=== PATIENT | female | born 1950 | race Caucasian/White ===

== ENCOUNTER → 2019-11-26 06:57 | Outpatient (CLI) | payer MEDICARE, SELFPAY ==
--- NOTE | 2019-11-26 | CA_ITS ---
APPROVED REPORT Exam: Pharmacologic Technologist: kelin michael, Ht: 5 ft 7 in Wt: 270 lbs BSA: 2.30 m2 HR: 71 bpm BP: 149/84 mmHg Indications: SOB Medical History Medications: Metformin,,,,, Lipitor,,,,, Cymbalta,,,,, JanuIVA,,,,, Allergies: Latex, Lisinopril, Sulfa, Trimethoprim Cardiac Risk Factors: HTN, Hyperlipidemia, Diabetes (non-insulin) Stress Test Details Test: LEXISCAN HR Resting HR: 69 bpm Max Heart Rate (APMHR): 153 bpm Max HR Achieved: 96 bpm Target HR (85% APMHR): 130 bpm % of APMHR: 62 Recovery HR: 86 bpm BP Resting BP: 149/84 mmHg Max BP: 174/73 mmHg Recovery BP: 171.0/72.0 mmHg ECG Resting ECG: Sinus Rhythm Clinical Exercise duration: 04:08 min Highest Stage Achieved: Stress ECG Conclusion Jessica scan portion completed. C/O SOB. No chest pain. Symptoms resolved during recovery. No ectopy. Less than 1.5mm ST Depression. Images to follow. Test Summary REST 01:31 . . 69 . 149/ 84 . . Stage 1 . . . . . . . Myoview Injected Stage 1 01:00 . . 81 . . . . Stage 2 01:00 . . 93 . 137/ 79 . . Stage 3 01:00 . . 84 . 157/ 79 . . Stage 4 01:00 . . 83 . 174/ 73 . . Stage 4 01:08 . . 84 . 171/ 72 . Stop exercise at 04:08 RECOVERY 01:00 . . 88 . 172/ 77 . . RECOVERY 02:00 . . 83 . 173/ 84 . . RECOVERY 03:00 . . 79 . 173/ 84 . . RECOVERY 04:00 . . 81 . 174/ 86 . . RECOVERY 04:02 . . 80 . 174/ 86 . . Electronically signed by : Pancho Hand, 11/26/2019 19:21:35
--- NOTE | 2019-11-26 07:15 | NM_ITS ---
APPROVED REPORT Exam: Nuclear Stress Test Indication: SOB, Fatigue, HTN, DM, Family history Patient Location: Outpatient Stress Tech: Kimberly Hassan CT Tech:Elizabeth Urrutia, ARRT, RT (R)(N) Ht: 5 ft 7 in Wt: 270 lbs Bra Size: 42C HR: 71 bpm BP: 149/84 mmHg BSA: 2.30 m2 BMI: 42.2 History: SOB, Fatigue, HTN, DM, Family history Procedure: Patient received a 0.4 mg of intravenous Lexiscan, resting heart rate 71 bpm, resting blood pressure 149/84 mmHg, with Lexiscan maximum heart rate achived was 96 bpm which is This is an 85 % of the maximum predicted heart rate and blood pressure was 174/73 mmHg. With Lexiscan, patient denied any complaint of chest pain. Electrocardiogram Resting electrocardiogram showed sinus rhythm, with Lexiscan there is less than 1.[address] segment depression noted from the baseline EKG. The EKG portion of the Lexiscan Myoview is nondiagnostic. Cardiac Stress and Resting SPECT Images: Cardiac Stress and Resting SPECT images were obtained using technetium 99m Myoview 32.2 mCi stress and 10.60 mCi at rest. Gated SPECT with analysis of segmental wall motion and calculation of the ejection fraction also done. Cardiac stress and resting SPECT images show mild fixed defect in the anterior wall with normal contribute gated SPECT and normal perfusion of the apex is likely secondary to soft tissue attenuation, no reversible ischemia seen. Computer derived ejection fraction is 63% with no regional wall motion abnormality, right ventricle is normal size and contractility. Conclusion: 1. The EKG portion of the Lexiscan Myoview is nondiagnostic. 2. No scintigraphic evidence of reversible ischemia seen, computer ejection fraction is 63% with no regional wall motion abnormality, right ventricle is normal size and contractility 3. Likely normal Lexiscan Myoview study. Electronically signed by : Pancho Hand, 11/26/2019 19:24:12
--- NOTE | 2019-11-26 07:23 | HMH.ITSHM ---
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 []JANUVIA METFORMIN CYMBALTA ATORVASTATIN
--- NOTE | 2019-11-26 08:08 | CA_ITS ---
APPROVED REPORT EXAM: Comprehensive 2D, Doppler, and color-flow Echocardiogram Longitudinal Float Operator: Susu Ledesma RDCS Ht: 5 ft 7 in Wt: 270lbs BSA: 2.30 BP: 110/80 mmHg Indications: soa 2D Dimensions LVOT 1.58 cm (M/F) 1.5-2.5 M-Mode Dimensions RVDd 2.11 cm (0.9-2.6) LVDd 5.52 cm (3.5-5.7) LVDs 3.95 cm (3.5-5.7) IVSd 1.66 cm (0.6-1.1) PWd 0.67 cm (0.6-1.1) EF (Teich) 54.30% FS 28.40% EDV (Teich) 148.70 mL ESV (Teich) 67.90 mL LV Diastology E/A Ratio 0.88 Mitral Valve MV A Velocity 90.00 (40-130 cm/s) Left Ventricle Left atrium is mildly enlarged, left ventricular is normal size, mild concentric left ventricular hypertrophy, visually estimated ejection fraction 55% with no regional wall motion abnormality, grade 1 diastolic dysfunction seen without tissue Doppler evidence of raise left atrial pressure. Right Ventricle Right atrium and right ventricle are normal size and contractility. Aortic Valve The aortic valve is thickened and calcified, leaflet continue to display mobility, Doppler is not indicated for significant aortic stenosis or aortic insufficiency. Mitral Valve Mitral inflow velocity within normal range, there is no mitral stenosis, there is mild mitral regurgitation. Tricuspid Valve Tricuspid valve is grossly normal, there is mild tricuspid regurgitation. Pulmonic Valve Pulmonic valve is poorly visualized. Great Vessels Aortic root is normal size. Pericardium No significant pericardial effusion noted. Conclusion 1. Mildly enlarged left atrium, normal ventricular size, mild concentric left hypertrophy, visually estimated ejection fraction 55% with no regional wall motion abnormality, grade 1 diastolic dysfunction seen without tissue Doppler evidence of raise left atrial pressure. 2. Thickened and calcified aortic valve without Doppler evidence of aortic stenosis aortic insufficiency. 3. Mild mitral and tricuspid regurgitation. 4. No significant pericardial effusion noted. Electronically signed by : Pancho Hand, 11/26/2019 20:28:27
--- NOTE | 2019-11-26 09:54 | MR_ITS ---
PROCEDURE: MR HEAD/BRAIN WO CON CLINICAL INDICATION: ALTERED MENTAL STATUS Altered mental status, altered level of consciousness, confusion, disorientation COMPARISON: HDWO CT HEAD W/O CONTRAST from 02/04/2014 TECHNIQUE: Routine multiplanar multi echo sequences are performed without gadolinium enhancement. FINDINGS: No midline shift, mass effect, intracranial hemorrhage, or hydrocephalus. No evidence of acute infarction. The cerebellopontine angles, cerebellum, and brainstem are unremarkable. There are scattered periventricular T2 white matter hyperintensities and may reflect ischemic gliotic change from microvascular disease. The pituitary, optic chiasm, corpus callosum, and craniocervical junction have an unremarkable appearance. No mastoid effusion or sinus air-fluid level. IMPRESSION: 1. No acute intracranial findings. 2. Nonspecific periventricular and T2 white matter hyperintensities. Most common etiology would be periventricular ischemic gliotic change from microvascular disease Dictated by: Chuck Bee MD 11/27/2019 14:01 Electronically signed by Chuck Bee MD in [place] 11/27/2019 14:01
== END ==
PROVIDERS: PCP Family Medicine; Visit Provider Nurse Practitioner
DX: R41.82 Altered mental status, unspecified (principal); R06.02 Shortness of breath; R60.0 Localized edema; I50.41 Acute combined systolic (congestive) and diastolic (congestive) heart failure
CPT/HCPCS: 70551; 78452; 93017; 93306; A9502; J2785

== ENCOUNTER → 2019-12-11 10:12 | Outpatient (POV) | payer MEDICARE, SELFPAY | PROVIDERS: PCP Family Medicine; Visit Provider Physician Assistant | DX: Z00.00 Encounter for general adult medical examination without abnormal findings (principal) ==

== ENCOUNTER → 2020-01-08 15:43 | Outpatient (POV) | payer MEDICARE, SELFPAY | PROVIDERS: PCP Nurse Practitioner; Visit Provider Dermatology | DX: Z00.00 Encounter for general adult medical examination without abnormal findings (principal) ==

== ENCOUNTER → 2020-02-22 15:10 | Outpatient (CLI) | payer MEDICARE, SELFPAY ==
--- NOTE | 2020-02-22 15:15 | XR_ITS ---
PROCEDURE: XR DEXA AXIAL SKELETON CLINICAL HISTORY: POST MENOPAUSAL COMPARISON: No exams were available for comparison FINDINGS: The right hip BMD is 0.961 with a T-score of 0.2. The left hip BMD is 0.818 with a T-score of -0.3. The lumbar spine BMD is 1.085 with a T-score of 0.3. IMPRESSION: This patient is considered normal according to the World Health Organization criteria. Fracture risk is low. Based on these results a follow-up exam is recommended in 2 year. Dictated by: Chuck Bee MD 02/23/2020 07:34 Chuck Bee MD in [facility] 02/23/2020 07:34
== END ==
PROVIDERS: PCP Nurse Practitioner; Visit Provider Nurse Practitioner
DX: Z78.0 Asymptomatic menopausal state (principal); T14.8XXA Other injury of unspecified body region, initial encounter
CPT/HCPCS: 77080

== ENCOUNTER → 2020-08-15 11:11 | Outpatient (CLI) | payer MEDICARE, SELFPAY ==
--- NOTE | 2020-08-15 11:17 | XR_ITS ---
PROCEDURE: XR CHEST PORTABLE CLINICAL HISTORY: COVID TESTING COMPARISON: CR CXR CHEST(2 VIEWS-NOT PORTABLE) from 07/21/[address] CHEST WITHOUT CONTRAST from 08/10/2012 CR CXR CHEST(2 VIEWS-NOT PORTABLE) from 06/26/2014 FINDINGS: The cardiomediastinal silhouette and pulmonary vascularity are within normal limits except for mild aortic tortuosity. The lung couch are well expanded. There are subtle ill-defined opacities at the left base probably secondary to atelectasis although a very minimal developing pneumonic infiltrate cannot be entirely excluded. There are mild multilevel degenerate changes of the thoracic spine. There are multiple surgical clips right axilla and axillary portion of the right breast.. No acute bony abnormalities. IMPRESSION: Left basilar atelectasis versus minimal pneumonic infiltrate and I somewhat favor the former Dictated by: Dr. Kana Wood MD 08/15/2020 13:04 Dr. Kana Wood MD in [place] 08/15/2020 13:04
== END ==
PROVIDERS: PCP Nurse Practitioner Family; Visit Provider Nurse Practitioner Family
DX: U07.1 COVID-19 (principal); R06.02 Shortness of breath; J12.82 Pneumonia due to coronavirus disease 2019
CPT/HCPCS: 71045

== ENCOUNTER → 2020-09-05 15:54 | Outpatient (CLI) | payer MEDICARE, SELFPAY ==
--- NOTE | 2020-09-05 16:03 | CA_ITS ---
APPROVED REPORT Right Lower Extremity Venous Study for DVT. Development System Efficiency Manager: LAURA Indications Lower Extremity Pain: Right Palpable Cord: Right Lower Extremity Edema: Right Varicose Veins right superficial knots noted on the distal thigh of right leg Risk Factors Obesity HTN, HLD, TEODORO, Diabetes. Medications Aspirin Patient states she is supposed to take two 81 mg ASA daily but is noncompliant with it. Vein Imaging CFV (R): compressive, spontaneous, phasic, augmentation FEM (R): compressive, spontaneous, phasic, augmentation POP (R): compressive, spontaneous, phasic, augmentation PTV (R): Compressible GSV (R): Thrombus SSV (R): Compressible Peroneals (R):Not Visualized GAS (R): Compressible Findings No evidence of DVT in the veins scanned of the right lower extremity. Color flow duplex demonstrates acute superficial thrombophlebitis of the right Great Saphenous Vein above the knee. Conclusion No evidence of DVT in the veins scanned of the right lower extremity. Color flow duplex demonstrates acute superficial thrombophlebitis of the right Great Saphenous Vein above the knee. Critical Notification Critical Value: Yes Physician Notified Date: 09/05/2020 Time: 16:29 Physician Name: Tiffani Trinidad Report Read Back Electronically signed by : Chuck Bee MD 09/08/2020 15:13:16
== END ==
PROVIDERS: PCP Nurse Practitioner Family; Visit Provider Nurse Practitioner Family
DX: M79.604 Pain in right leg (principal); R22.41 Localized swelling, mass and lump, right lower limb
CPT/HCPCS: 93971

== ENCOUNTER → 2020-09-12 15:53 | Outpatient (CLI) | payer MEDICARE, SELFPAY ==
--- NOTE | 2020-09-12 | XR_ITS ---
PROCEDURE: XR CHEST 2V CLINICAL HISTORY: COUGH, SOB COMPARISON: CR CXR CHEST(2 VIEWS-NOT PORTABLE) from 07/21/[address] CHEST WITHOUT CONTRAST from 08/10/2012 CR CXR CHEST(2 VIEWS-NOT PORTABLE) from 06/26/2014 CR XR CHEST PORTABLE from 08/15/2020 FINDINGS: The cardiomediastinal silhouette and pulmonary vascularity are within normal limits. Surgical clips are present in the right axilla. Lungs are clear bilaterally. Degenerative changes thoracic spine. IMPRESSION: No acute findings. Dictated by: Chuck Bee MD 09/12/2020 16:54 Chuck Bee MD in [facility] 09/12/2020 16:54
--- NOTE | 2020-09-12 | XR_ITS ---
PROCEDURE: XR FOREARM RT 2V CLINICAL INDICATION: INJURY TO RT UPPER EXTREMITY, INITIAL ENCOUNTER COMPARISON: No exams were available for comparison FINDINGS: No fracture or dislocation. No lytic or blastic change. There is normal mineralization. The joint spaces are well-preserved. No significant degenerative/arthritic changes. No erosive changes evident. Other findings:None. IMPRESSION: No acute findings. Dictated by: Chuck Bee MD 09/12/2020 16:52 Chuck Bee MD in [place] 09/12/2020 16:52
--- NOTE | 2020-09-12 | XR_ITS ---
PROCEDURE: XR HUMERUS RT CLINICAL INDICATION: INJURY TO RT UPPER EXTREMITY, INITIAL ENCOUNTER COMPARISON: No exams were available for comparison FINDINGS: No fracture or dislocation. No lytic or blastic change. There is normal mineralization. The joint spaces are well-preserved. No significant degenerative/arthritic changes. No erosive changes evident. Other findings:Surgical clips are present in the axilla IMPRESSION: No acute findings. Dictated by: Chuck Bee MD 09/12/2020 16:52 Chuck Bee MD in [facility] 09/12/2020 16:52
== END ==
PROVIDERS: PCP Nurse Practitioner Family; Visit Provider Nurse Practitioner Family
DX: R06.02 Shortness of breath (principal); R05 Cough; S49.91XA Unspecified injury of right shoulder and upper arm, initial encounter
CPT/HCPCS: 71046; 73060; 73090

== ENCOUNTER → 2020-10-22 13:57 | Outpatient (CLI) | payer MEDICARE, SELFPAY ==
--- NOTE | 2020-10-22 14:06 | XR_ITS ---
PROCEDURE: XR CHEST 2V CLINICAL HISTORY: pnm Pneumonia COMPARISON: CT [facility] CT CHEST WITHOUT CONTRAST from 08/10/2012 CR CXR CHEST(2 VIEWS-NOT PORTABLE) from 06/26/2014 CR XR CHEST PORTABLE from 08/15/2020 CR XR CHEST 2V from 09/12/2020 FINDINGS: The cardiomediastinal silhouette and pulmonary vascularity are within normal limits. The lungs are clear without infiltrates, suspicious nodules, or pleural effusions. Degenerative changes thoracic spine with mild kyphosis. Surgical clips in the right axilla. IMPRESSION: No acute findings. Dictated by: Chuck Bee MD 10/22/2020 15:20 Chuck Bee MD in [facility] 10/22/2020 15:20
--- NOTE | 2020-10-22 15:00 | PC.NURSE ---
Completed PFT and 6 Minute Walk Test. Albuterol 0.083% given via HHN, per written protocol, Pt tolerated tx well.
== END ==
PROVIDERS: PCP Nurse Practitioner Family; Visit Provider Internal Medicine Pulmonary Disease
DX: R06.00 Dyspnea, unspecified (principal); J44.9 Chronic obstructive pulmonary disease, unspecified
CPT/HCPCS: 71046; 94060; 94618; 94726; 94729

== ENCOUNTER → 2020-12-30 16:28 | Outpatient (CLI) | payer MEDICARE, SELFPAY ==
--- NOTE | 2020-12-30 16:37 | XR_ITS ---
PROCEDURE: XR THORACIC SPINE 3V CLINICAL INDICATION: PAIN IN THORACIC SPINE COMPARISON: CR XR CHEST 2V from 10/22/2020 FINDINGS: No fracture or dislocation. No lytic or blastic change. There is normal mineralization. Multilevel degenerative disc disease noted with endplate osteophytes. No acute fracture apparent. IMPRESSION: Degenerative changes of the thoracic spine Dictated by: Chuck Bee MD 12/30/2020 17:41 Chuck Bee MD in [facility] 12/30/2020 17:41
== END ==
PROVIDERS: PCP Nurse Practitioner Family; Visit Provider Nurse Practitioner Family
DX: M54.6 Pain in thoracic spine (principal)
CPT/HCPCS: 72072

== ENCOUNTER → 2021-04-10 14:14 | Outpatient (CLI) | payer MEDICARE, SELFPAY ==
--- NOTE | 2021-04-10 14:19 | US_ITS ---
APPROVED REPORT Exam Type: Lower Extremity Segmental Pressures Carding Utility Tender: Susu Ledesma RDCS Indications Claudication: Rest Pain: Risk Factors Hypertension Obesity Pressures/Indices Right Indices Left Indices Brachial Brachial 200.00 mmHg Low Thigh 238.00 mmHg 1.19 Low Thigh 245.00 mmHg 1.23 Calf 222.00 mmHg 1.11 Calf 237.00 mmHg 1.19 Ankle(PT) 240.00 mmHg 1.20 Ankle(PT) 0.00 mmHg 0.00 Ankle(DP) 221.00 mmHg 1.11 Ankle(DP) 233.00 mmHg 1.17 Digit 155.00 mmHg 0.78 Digit 171.00 mmHg 0.86 Findings NORMAL WAVEFORMS ELEVATED B/P NORMAL PULSES R DIANNE 1.2 L DIANNE 1.2 R TBI .8 L TBI .9 Conclusion NORMAL WAVEFORMS ELEVATED B/P NORMAL PULSES R DIANNE 1.2 L DIANNE 1.2 R TBI .8 L TBI .9 Normal appearing resting noninvasive lower extremity arterial study. Electronically signed by : Chuck Bee MD 04/10/2021 15:44:48
== END ==
PROVIDERS: PCP Nurse Practitioner Family; Visit Provider Nurse Practitioner Family
DX: M79.662 Pain in left lower leg (principal); M79.661 Pain in right lower leg; R09.89 Other specified symptoms and signs involving the circulatory and respiratory systems
CPT/HCPCS: 93923

== ENCOUNTER → 2021-04-30 16:00 | Outpatient (CLI) | payer MEDICARE, SELFPAY ==
--- NOTE | 2021-04-30 16:03 | MM_ITS ---
PROCEDURE INFORMATION: Exam: MG Bilateral Screening 3D Mammography Exam date and time: 04/30/2021 4:03 PM Age: 70 years old Clinical indication: screening mammogram TECHNIQUE: Imaging protocol: Bilateral screening tomosynthesis and 2D mammography including computer-aided detection (CAD) when performed. COMPARISON: 1. MG DMSB DIG MAMM-SCREEN HERVE 06/05/2015 3:28 PM 2. MG DMSB DIGITAL MAMM-SCREEN BILATERAL 04/22/2011 8:11 AM 3. MG DIGMAMMS MAMMOGRAM SCREEN-FOUNDRY WORKER N/C 10/24/2006 8:37 AM 4. MG DIGMAMMS MAMMOGRAM SCREEN-FOUNDRY WORKER N/C 07/06/2004 8:37 AM FINDINGS: MAMMOGRAPHY: Breast composition: There are scattered areas of fibroglandular density. Mass: None. Architectural distortion: No new or suspicious architectural distortion. Calcifications: No new or suspicious calcifications are present Asymmetric density: No new or suspicious asymmetric density is present Skin thickening: None. Axillary adenopathy: None. IMPRESSION: No mammographic evidence of malignancy. Recommend annual screening mammography unless otherwise clinically indicated. ASSESSMENT: BI-RADS category 1: Negative
== END ==
PROVIDERS: PCP Nurse Practitioner Family; Visit Provider Nurse Practitioner Family
DX: Z12.31 Encounter for screening mammogram for malignant neoplasm of breast (principal); M54.6 Pain in thoracic spine
CPT/HCPCS: 77063; 77067

== ENCOUNTER → 2021-06-03 14:43 | Outpatient (CLI) | payer MEDICARE, SELFPAY ==
--- NOTE | 2021-06-03 14:49 | US_ITS ---
PROCEDURE: US KIDNEY CLINICAL INDICATION: KIDNEY CYSTS COMPARISON: No exams were available for comparison FINDINGS: The right kidney is [id number]. No hydronephrosis, cortical thinning, or renal mass or perinephric fluid collection is evident. The left kidney is [id number]. No hydronephrosis, cortical thinning, or renal mass or perinephric fluid collection is evident. Is somewhat limited due to patient's body habitus. Outside exams not available for review. Outside report not available for review. A hypoechoic areas present along the lower pole of the right kidney. This measures 13 x 8 mm. There is enhanced through transmission of sound. The lesion is somewhat poorly delineated due to its location and patient's body habitus. This may represent a cyst however, there are low level internal echoes possibly due to the a for mentioned limitations. Please correlate with outside MRI.. IMPRESSION: Hypoechoic lesion lower pole right kidney at 13 x 8 mm which may represent a cyst. There are limitations to the exam. There are low level echoes within this area possibly due to the limitations. Please correlate with outside exam. Recommend three month follow-up to confirm stability. Dictated by: Chuck Bee MD 06/03/2021 16:51 Chuck Bee MD in [place] 06/03/2021 16:51
== END ==
LOC: RAD 14:44
PROVIDERS: PCP Nurse Practitioner Family; Visit Provider Nurse Practitioner Family
DX: N28.1 Cyst of kidney, acquired (principal)
CPT/HCPCS: 76770

== ENCOUNTER → 2021-08-06 15:56 | Outpatient (CLI) | payer MEDICARE, SELFPAY ==
[2021-08-06 16:48] LABS: Basophils # 0.1 K/mm3 (0-0.2); Basophils % 0.6 % (0.1-2.0); Eosinophils # 0.1 K/mm3 (0.0-0.4); Hematocrit 40.5 % (37.0-47.0); Hemoglobin 12.9 g/dL (12.2-16.2); Lymphocytes # 2.5 K/mm3 (0.7-4.5); Lymphocytes % 24.4 % (10-50); Mean Corpuscular HGB Conc 31.8 g/dL (31.8-35.4); Mean Corpuscular Hemoglobin 28.8 pg (27.0-31.2); Mean Corpuscular Volume 90.7 fl (81-99); Mean Platelet Volume 8.6 fl (7.4-10.4); Monocytes # 0.4 K/mm3 (0.1-1.0); Monocytes % 4.3 % (1.7-9.3); Neutrophils % 69.7 % (37.0-80.0); Platelet Count 283 K/mm3 (142-424); Red Blood Count 4.47 M/mm3 (4.20-5.40); Red Cell Distribution Width 14.9 % (11.5-17.5); White Blood Count 10.1 K/mm3 (4.8-10.8)
[2021-08-06 17:38] LABS: Anion Gap 13.4 mEq/L (5-15); Blood Urea Nitrogen 18 mg/dl (7-17); Calcium 8.8 mg/dl (8.4-10.2); Carbon Dioxide 23 mmol/L (22.0-30.0); Chloride 104 mmol/L (98-107); Estimated Glomerular Filt Rate 55 ml/min (>60); GFR (African American) 67 ML/MIN (>60); Glucose 178 mg/dl (74-100); Potassium 4.4 mmoL/L (3.5-5.1); Sodium 136 mmol/L (136-145)
== END ==
PROVIDERS: PCP Nurse Practitioner Family; Visit Provider Internal Medicine
DX: I10 Essential (primary) hypertension (principal); Z01.812 Encounter for preprocedural laboratory examination; Z11.52 Encounter for screening for COVID-19; R06.00 Dyspnea, unspecified; R07.9 Chest pain, unspecified
CPT/HCPCS: 36415; 80048; 85025; C9803; U0003; U0005

== ENCOUNTER 2021-08-07 09:30 | Day surgery (SDC) | payer MEDICARE, SELFPAY ==
[2021-08-07] VITALS (13 sets, daily range): BP systolic 165–199; BP diastolic 84–115; PULSE 59–78; RESP 17–19; O2SAT 93–98; BMI 42.4
--- NOTE | 2021-08-07 | IR_ITS ---
APPROVED REPORT Patient Location: Outpatient PROCEDURES Left heart catheterization Left ventriculogram Selective coronary angiogram Drug-eluting stent deployment to the ostial dominant right coronary Informed consent was obtained prior to the procedure. COMPLICATIONS None Estimated Blood Loss: Less than 10 ML TECHNIQUE 1% lidocaine used to anesthetize the right anterior aspect of the right wrist. Right radial artery was accessed via the sounder technique and a six Latvian hydrophilic sheath was placed in the right radial artery. An arterial cocktail using verapamil nitroglycerin lidocaine and heparin were administered. 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 At this point 1% lidocaine was used anesthetize the right groin and the right femoral was accessed via Salinger technique. A four Latvian is patient right femoral artery and a [id number] JR4 catheter were used to perform selective coronary angiography. At the end the diagnostic angiogram therapeutic heparin was administered and the four Latvian sheath was exchanged for six Latvian sheath. A WINTER guide catheter was placed in the right coronary artery where a BMW wire wire was placed distally. A 4 mm x 12 mm resolute Mickey stent was deployed at 24 jairo reducing the severe stenosis to 20%. A 4.5 x 8 mm noncompliant balloon was then placed in the ostium and deployed at 24 jairo to further post dilate. SARAH-3 flow was present before and after the procedure. At the end of the diagnostic angiogram this WINTER catheter was used to perform left heart catheterization and left ventriculogram. At the end of the procedure the apparatus was removed the groin was reprepped closure change sheath was removed good hemostasis was achieved using Perclose device patient was transferred to the postop already in stable condition ANGIOGRAPHIC RESULTS The left main artery Normal The left anterior descending artery Has proximal 10 to 20% stenosis with mild 10% luminal irregularities The circumflex artery Nondominant with mild 10% luminal irregularities The right coronary artery Large and dominant with an ostial 70% stenosis The ZAMARRIPA ventriculogram reveals Hyperdynamic at 75% The left ventricular end-diastolic pressure 10 mmHg IMPRESSION Severe single-vessel coronary disease as described above Hyperdynamic ventricle consistent with hypertensive heart disease Normal left ventricular and SI pressure PLAN 1. Dual antiplatelet therapy 2. Cardiac rehabilitation 3. Risk factor modification 4. LDL less than fifty-five 5. Avoidance of tobacco products Electronically signed by : Pj Ogden MD 08/07/2021 23:19:56
[2021-08-07 13:12] LABS: CATHL Activated Clotting Time > 400 SEC (74-125)
--- NOTE | 2021-08-07 15:28 | HMH.PHACLD ---
Raya Hoover has received discharge medication counseling on the following medications: PATIENT IS CURRENTLY TAKING ASPIRIN 162 MG (CHANGING TO 81 MG), LOSARTAN HYDROCHLOROTHIAZIDE 100/25 MG, AND ATORVASTATIN 20 MG HS. STARTING BRILINTA 90 MG BID AND CARVEDILOL 12.5 MG BID.
== END 2021-08-07 16:00 | disposition home or self-care (01) ==
LOC: CATHLAB 09:32
PROVIDERS: PCP Nurse Practitioner Family; Visit Provider Internal Medicine
DX: I25.118 Atherosclerotic heart disease of native coronary artery with other forms of angina pectoris (principal); R06.00 Dyspnea, unspecified; E66.01 Morbid (severe) obesity due to excess calories; Z68.41 Body mass index [BMI] 40.0-44.9, adult; G47.33 Obstructive sleep apnea (adult) (pediatric); I11.9 Hypertensive heart disease without heart failure; R94.31 Abnormal electrocardiogram [ECG] [EKG]; Z79.899 Other long term (current) drug therapy; Z88.8 Allergy status to other drugs, medicaments and biological substances
CPT/HCPCS: 85347; 92928; 93458; 99152; 99153; C1725; C1760; C1769; C1876; C1894; C9600; J1644; Q9967

== ENCOUNTER 2021-09-09 15:24 | Outpatient (RCR) | payer MEDICARE, SELFPAY | END 2021-09-09 15:25 | disposition home or self-care (01) | LOC: PT 15:24 | PROVIDERS: Visit Provider Internal Medicine | DX: I25.10 Atherosclerotic heart disease of native coronary artery without angina pectoris (principal); Z95.5 Presence of coronary angioplasty implant and graft | CPT/HCPCS: 93798 ==

== ENCOUNTER → 2021-09-11 15:28 | Outpatient (CLI) | payer MEDICARE, SELFPAY ==
--- NOTE | 2021-09-11 15:32 | CA_ITS ---
FINAL REPORT TECHNIQUE: Color Doppler, duplex Doppler and campbell scale sonography of the bilateral neck arterial vasculature was performed. Velocities were measured in the carotid arteries. Stenosis evaluation based on the validated velocity criteria. CLINICAL HISTORY: DIZZINESS, LT NECK PAIN,HTN FINDINGS: The peak systolic velocity of the right common carotid artery is 74 cm/s. The peak systolic velocity of the right internal carotid artery is 96 cm/s and end diastolic velocity 18 cm/s. The ICA/CCA ratio is 1.6. A mild amount of plaque is present. The right external carotid artery is patent. The right vertebral artery is patent with antegrade flow. The peak systolic velocity of the left common carotid artery is 73 cm/s. The peak systolic velocity of the left internal carotid artery is 76 cm/s and end diastolic velocity 23 cm/s. The ICA/CCA ratio is 1.0. A mild amount of plaque is present. The left external carotid artery is patent.The left vertebral artery is patent with antegrade flow. Note is made of a 2.6 cm left neck lymph node which favors a reactive lymph node. IMPRESSION: Less than 50% bilateral carotid stenosis. Bilateral patent vertebral arteries with antegrade flow. If indicated, CTA or MRA could further evaluate. Reviewed, Interpreted and Dictated by Slim Eaton III, MD Transcribed by Mally Michaels Authenticated by Slim Eaton III, MD on 09/11/2021 04:45:12 PM [facility]
== END ==
PROVIDERS: PCP Nurse Practitioner Family; Visit Provider Nurse Practitioner Family
DX: R42 Dizziness and giddiness (principal); M54.2 Cervicalgia; Z13.6 Encounter for screening for cardiovascular disorders
CPT/HCPCS: 93880

== ENCOUNTER → 2022-05-24 16:08 | Outpatient (CLI) | payer MEDICARE, SELFPAY ==
[2022-05-24 16:53] LABS: Basophils # 0.1 K/mm3 (0-0.2); Basophils % 0.7 % (0.1-2.0); Eosinophils # 0.1 K/mm3 (0.0-0.4); Eosinophils % 1.2 % (0.1-12.0); Hematocrit 40.3 % (37.0-47.0); Hemoglobin 13.1 g/dL (12.2-16.2); Lymphocytes # 2.2 K/mm3 (0.7-4.5); Lymphocytes % 24.5 % (10-50); Mean Corpuscular HGB Conc 32.4 g/dL (31.8-35.4); Mean Corpuscular Hemoglobin 28.8 pg (27.0-31.2); Mean Corpuscular Volume 89.1 fl (81-99); Mean Platelet Volume 8.7 fl (7.4-10.4); Monocytes # 0.5 K/mm3 (0.1-1.0); Monocytes % 5.7 % (1.7-9.3); Neutrophils # 6.2 K/mm3 (1.8-7.8); Platelet Count 252 K/mm3 (142-424); Red Blood Count 4.53 M/mm3 (4.20-5.40); Red Cell Distribution Width 15.1 % (11.5-17.5); White Blood Count 9.1 K/mm3 (4.8-10.8)
[2022-05-24 17:15] LABS: Alanine Aminotransferase 25 U/L (12-78); Albumin Level 4.1 g/dl (3.5-5.0); Albumin/Globulin Ratio 1.3 (1.1-1.8); Alkaline Phosphatase 131 U/L (38-126); Anion Gap 16.8 mEq/L (5-15); Aspartate Amino Transferase 27 U/L (14-36); Bilirubin,Total 0.6 mg/dl (0.2-1.3); Blood Urea Nitrogen 17 mg/dl (7-17); Calcium 9.7 mg/dl (8.4-10.2); Carbon Dioxide 29 mmol/L (22.0-30.0); Chloride 96 mmol/L (98-107); Chol/HDL Ratio 4.1 (1-3.5); Cholesterol 203 mg/dl (140-200); Estimated Glomerular Filt Rate 45 ml/min (>60); GFR (African American) 54 ML/MIN (>60); Globulin 3.1 g/dL (1.3-3.2); Glucose 189 mg/dl (74-100); HDL Cholesterol 50 mg/dl (40-60); Potassium 3.8 mmoL/L (3.5-5.1); Sodium 138 mmol/L (136-145); Total Protein,Serum 7.2 g/dl (6.3-8.2); Triglycerides 95 mg/dl (30-150); VLDL Cholesterol 19 mg/dL (0-40)
[2022-05-24 17:26] LABS: Direct LDL Cholesterol 124.19 mg/dL (100-129)
== END ==
PROVIDERS: PCP Nurse Practitioner Family; Visit Provider Nurse Practitioner Family
DX: E11.9 Type 2 diabetes mellitus without complications (principal); E78.2 Mixed hyperlipidemia; L30.8 Other specified dermatitis; Z79.84 Long term (current) use of oral hypoglycemic drugs
CPT/HCPCS: 36415; 80053; 80061; 83036; 85025

== ENCOUNTER → 2022-06-07 16:45 | Outpatient (CLI) | payer MEDICARE, SELFPAY ==
[2022-06-07 18:18] LABS: Erythrocyte Sedimentation Rate 19 mm/hr (0-30)
[2022-06-07 19:30] LABS: Uric Acid 4.8 mg/dl (2.5-6.2)
[2022-06-07 19:36] LABS: C-Reactive Protein 9.2 mg/L (0-4)
[2022-06-09 12:38] LABS: RA Latex Turbid. <10.0 IU/mL (<14.0)
[2022-06-19 23:32] LABS: Antinuclear Antibodies, IFA POSITIVE
== END | disposition home or self-care (01) ==
PROVIDERS: PCP Nurse Practitioner Family; Visit Provider Nurse Practitioner Family
DX: M25.50 Pain in unspecified joint (principal); R79.82 Elevated C-reactive protein (CRP)
CPT/HCPCS: 36415; 84550; 85651; 86038; 86140; 86431

== ENCOUNTER → 2022-06-18 12:16 | Outpatient (CLI) | payer MEDICARE, SELFPAY ==
--- NOTE | 2022-06-18 12:22 | US_ITS ---
PROCEDURE INFORMATION: Exam: US Right Breast, Complete MG Bilateral Diagnostic Breast Tomosynthesis Exam date and time: 06/18/2022 12:18 PM Age: 71 years old Clinical indication: Right breast pain; PT had melanoma and nodes removed axillary x 20 yrs ago; Right lateral breast pain off and on few months. TECHNIQUE: Imaging protocol: Complete ultrasound of all four quadrants of the Right breast and the retroareolar regions, including ultrasound of the axilla when performed. Bilateral Diagnostic tomosynthesis and 2D mammography including computer-aided detection (CAD) when performed. Unilateral or bilateral exam. COMPARISON: 1. MG MM DIG SCREENING MAMM BI W/CAD 04/30/2021 4:11 PM 2. MG DMSB DIG MAMM-SCREEN HERVE 06/05/2015 3:28 PM FINDINGS: MAMMOGRAPHY: The breast tissue is almost entirely fatty. There is no stellate mass, architectural distortion or suspicious microcalcifications in either breast to suggest malignancy. No skin thickening or axillary adenopathy. ULTRASOUND: Sonographic images of the right breast including the retroareolar region, all 4 quadrants and the axilla do not demonstrate any solid or cystic masses. No architectural distortion or acoustical shadowing. No skin thickening or axillary adenopathy. IMPRESSION: No mammographic or sonographic evidence of malignancy. Annual bilateral mammographic screening is recommended unless otherwise clinically indicated. ASSESSMENT: BI-RADS Category 1: Negative
== END ==
LOC: RAD 12:18
PROVIDERS: PCP Nurse Practitioner Family; Visit Provider Nurse Practitioner Family
DX: R92.8 Other abnormal and inconclusive findings on diagnostic imaging of breast (principal); N64.4 Mastodynia
CPT/HCPCS: 76641; 77062; 77066; G0279

== ENCOUNTER 2022-11-06 18:37 | Emergency (ER) | payer MEDICARE, SELFPAY ==
[2022-11-06] VITALS (7 sets, daily range): BP systolic 197–228; BP diastolic 80–115; PULSE 64–74; RESP 14–19; TEMP 36.7; O2SAT 97–98; BMI 40.7
--- NOTE | 2022-11-06 18:38 | CT_ITS ---
PROCEDURE INFORMATION: Exam: CT Head Without Contrast Exam date and time: 11/06/2022 6:45 PM Age: 72 years old Clinical indication: Stroke-like symptoms; Bilateral facial droop TECHNIQUE: Imaging protocol: Computed tomography of the head without contrast. Radiation optimization: All CT scans at this facility use at least one of these dose optimization techniques: automated exposure control; mA and/or kV adjustment per patient size (includes targeted exams where dose is matched to clinical indication); or iterative reconstruction. Other technique: STROKE PROTOCOL was implemented. REPORTING DATA: Count of CT and Cardiac NM exams in prior 12 months: This patient has received 0 known CTs and 0 known cardiac nuclear medicine studies in the 12 months prior to the current study. COMPARISON: MR HEAD/BRAIN WO CON 11/26/2019 10:34 AM FINDINGS: Brain: Age-related volume loss. Decreased attenuation of the supratentorial white matter is likely secondary to chronic microvascular ischemia. There is abnormal low density at the right basal ganglia/angulo radiata measuring up to 3 cm. No acute intracranial hemorrhage. No midline shift. Cerebral ventricles: No hydrocephalus. Paranasal sinuses: Visualized sinuses are unremarkable. No fluid levels. Mastoid air cells: Visualized mastoid air cells are well aerated. Bones/joints: Unremarkable. No acute fracture. Soft tissues: Unremarkable. IMPRESSION: 1. Low density at the right basal ganglia/angulo radiata measuring up to 3 cm, acute or subacute ischemic infarct. 2. Negative for acute intracranial hemorrhage. ASSESSMENT: ASPECTS ([place] Stroke Program Early CT Score) is 7.
--- NOTE | 2022-11-06 18:39 | PC.NURSE ---
Stroke protocol initiated
--- NOTE | 2022-11-06 18:39 | PC.NURSE ---
Pt to CT
--- NOTE | 2022-11-06 18:40 | PC.NURSE ---
FSB ; Dr. Llanos aware
--- NOTE | 2022-11-06 18:49 | PC.NURSE ---
pt returned from radiology.
--- NOTE | 2022-11-06 19:00 | ECG_ITS ---
APPROVED REPORT Exam: Resting ECG HR:71 bpm ECG Measurements Heart Rate 71 AXES CA 286 P 69 QRSd 117 QRS -22 QT 444 T 58 QTc 467 Conclusion SINUS RHYTHM WITH FIRST DEGREE AV BLOCK MODERATE VOLTAGE CRITERIA FOR LVH, CONSIDER NORMAL VARIANT [MEETS CRITERIA IN ONE OF: R(aVL), S(V1), R(V5), R(V5/V6)+S(V1)] POSSIBLE SEPTAL MYOCARDIAL INFARCTION , PROBABLY OLD [30 ms Q WAVE IN V1/V2] POSSIBLE LATERAL MYOCARDIAL INFARCTION , PROBABLY OLD [30 ms Q WAVE IN I/aVL/V5/V6] ABNORMAL ECG UNCONFIRMED REPORT Electronically signed by : Sancho Arevalo MD 11/07/2022 08:01:53
--- NOTE | 2022-11-06 19:15 | PC.NURSE ---
is talking to [facility] at this time.
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
--- NOTE | 2022-11-06 19:38 | PC.NURSE ---
called report to Vicenta at [facility] [address].
[2022-11-06 20:04] LABS: Basophils % 0.3 % (0.1-2.0); Eosinophils # 0.1 K/mm3 (0.0-0.4); Eosinophils % 1.1 % (0.1-12.0); Hematocrit 39.9 % (37.0-47.0); Hemoglobin 12.8 g/dL (12.2-16.2); Lymphocytes # 2.4 K/mm3 (0.7-4.5); Lymphocytes % 26.7 % (10-50); Mean Corpuscular Hemoglobin 27.7 pg (27.0-31.2); Mean Corpuscular Volume 86.6 fl (81-99); Mean Platelet Volume 8.4 fl (7.4-10.4); Monocytes # 0.5 K/mm3 (0.1-1.0); Monocytes % 5.4 % (1.7-9.3); Neutrophils % 66.4 % (37.0-80.0); Platelet Count 268 K/mm3 (142-424); Red Cell Distribution Width 15.7 % (11.5-17.5)
--- NOTE | 2022-11-06 20:06 | PC.NURSE ---
notified [facility] that pt is ready to transport to [facility]
[2022-11-06 20:09] LABS: Activated Partial Thrombo Time 25.6 seconds (22.8-30.6); INR 0.92 (0.9-1.1)
--- NOTE | 2022-11-06 20:10 | PC.NURSE ---
Pt accepted to [facility]
--- NOTE | 2022-11-06 20:14 | PC.NURSE ---
calling [facility] for transfer at this time.
[2022-11-06 20:15] LABS: Alanine Aminotransferase 28 U/L (12-78); Albumin Level 4.1 g/dl (3.5-5.0); Albumin/Globulin Ratio 1.1 (1.1-1.8); Alkaline Phosphatase 121 U/L (38-126); Aspartate Amino Transferase 31 U/L (14-36); Bilirubin,Total 0.4 mg/dl (0.2-1.3); Blood Urea Nitrogen 18 mg/dl (7-17); Calcium 9.1 mg/dl (8.4-10.2); Carbon Dioxide 30 mmol/L (22.0-30.0); Chloride 94 mmol/L (98-107); Creatinine Clearance Estimated 97 mL/min (50-200); Estimated Glomerular Filt Rate 55 ml/min (>60); GFR (African American) 66 ML/MIN (>60); Globulin 3.6 g/dL (1.3-3.2); Glucose 248 mg/dl (74-100); Potassium 3.5 mmoL/L (3.5-5.1); Total Protein,Serum 7.7 g/dl (6.3-8.2)
--- NOTE | 2022-11-06 20:15 | PC.NURSE ---
on the phone with [facility] at this time.
--- NOTE | 2022-11-06 20:17 | PC.NURSE ---
called [facility] for possible pt transfer
[2022-11-06 20:18] LABS: Anion Gap 17.5 mEq/L (5-15); Sodium 138 mmol/L (136-145)
[2022-11-06 20:28] LABS: Troponin I 0.01 ng/ml (0.00-0.034)
--- NOTE | 2022-11-06 20:34 | PC.NURSE ---
Pt accepted to [facility]
--- NOTE | 2022-11-06 21:07 | HMH.EDGENADL ---
Discharge Plan Disposition Patient Disposition: Xfer Short-Term Hosp Prescriptions Prescriptions: No Action Brilinta 90 mg tablet 90 mg PO BID Label Comments: TAKE ONE TABLET BY MOUTH TWICE DAILY albuterol sulfate 90 mcg/actuation HFA aerosol inhaler 1 inh INHALATION QID PRN (Reason: shortness of breath or wheezing) Qty: 8.5 3RF losartan-hydrochlorothiazide 100-25 mg tablet 1 tab PO DAILY duloxetine [Cymbalta] 60 mg capsule,delayed release(DR/EC) 60 mg PO DAILY atorvastatin [Lipitor] 20 mg tablet 20 mg PO DAILY terbinafine HCl 250 mg tablet 250 mg PO DAILY aspirin 81 mg tablet,chewable 162 mg PO DAILY amlodipine 10 mg tablet 10 mg PO DAILY Qty: 90 3RF metformin 1,000 MG tablet 1,000 mg PO DAILY sitagliptin phosphate 50 mg tablet 100 mg PO DAILY carvedilol 12.5 MG tablet 12.5 mg PO BID Referrals Follow up/Referrals: Cheyenne Marina MD [Primary Care Provider] - See instructions Stand Alone Forms Stand Alone Forms: Transfer Record - ED Discharge ED Provider: Durga Llanos [facility] Adult HPI General Chief complaint: Neuro Symptoms/Deficit Stated complaint: Stroke symptoms Time Seen by Provider: 11/06/22 18:39 Mode of Arrival: Wheelchair Source of Information: Patient Limitations: No Limitations Description of Symptoms (Recalled from ER Triage Doc. by RN): pt states she has felt weak for the last 2 months, went to her pcp on tuesday a1c was 10, states she woke up this morning and had L sided weakness, states she has been sleeping most of the afternoon, family woke her up around 6pm to take pictures when they noticed L sided facial droop, family said this morning when she came over they noticed she couldn't stand up straight but that was it History of Present Illness HPI narrative: Very pleasant 72-year-old lady with a very significant past medical history who presents with a left-sided weakness. Patient states she has been intermittently weak for the past few weeks however she did not have a facial droop when she went to sleep at 11 AM. She woke up with a facial droop. She also complains of left leg weakness but is unsure of when this started. Related Data Home Medications Medication Instructions Recorded Confirmed metformin 1,000 mg tablet 1,000 mg PO DAILY Diabetes 06/01/19 11/06/22 aspirin 81 mg chewable tablet 162 mg PO DAILY . 07/17/21 11/06/22 atorvastatin 20 mg tablet (Lipitor) 20 mg PO DAILY . 07/17/21 11/06/22 duloxetine 60 mg capsule,delayed 60 mg PO DAILY . 07/17/21 11/06/22 release (Cymbalta) losartan 100 1 tab PO DAILY . 07/17/21 11/06/22 mg-hydrochlorothiazide 25 mg tablet sitagliptin phosphate 50 mg tablet 100 mg PO DAILY Diabetes 07/17/21 11/06/22 terbinafine HCl 250 mg tablet 250 mg PO DAILY . 07/17/21 11/06/22 carvedilol 12.5 mg tablet 12.5 mg PO BID HTN 08/07/21 11/06/22 ticagrelor 90 mg tablet (Brilinta) 90 mg PO BID . 10/23/21 11/06/22 Previous Rx's Medication Instructions Recorded albuterol sulfate 90 mcg/actuation 1 inh inhalation QID PRN shortness 10/22/20 aerosol inhaler of breath or wheezing #8.5 grams amlodipine 10 mg tablet 10 mg PO DAILY HTN #90 tabs 08/07/21 Allergies Allergy/AdvReac Type Severity Reaction Status Date / Time latex [LATEX] Allergy Intermediate I-RASH Verified 11/06/22 19:24 adhesive tape [ADHESIVE TAPE] Allergy Unknown Unknown Verified 11/06/22 19:24 allergy reaction lisinopril [LISINOPRIL] Allergy Unknown DORINDA COUGH Verified 11/06/22 19:24 Sulfa (Sulfonamide Allergy Unknown Unknown Verified 11/06/22 19:24 Antibiotics) allergy [SULFA (SULFONAMIDE reaction ANTIBIOTICS)] sulfamethoxazole Allergy Unknown Unknown Verified 11/06/22 19:24 [SULFAMETHOXAZOLE] allergy reaction trimethoprim [TRIMETHOPRIM] Allergy Unknown Unknown Verified 11/06/22 19:24 allergy reaction PFSH PFS Disclaimer: The information contained in this section may casillas
== END 2022-11-06 22:38 | disposition short-term general hospital (02) ==
PROVIDERS: Emergency Provider Emergency Medicine; PCP Family Medicine
DX: R53.1 Weakness (principal); R29.810 Facial weakness
CPT/HCPCS: 70450; 80053; 84484; 85025; 85610; 85730; 93005; 99285

== ENCOUNTER 2023-08-02 11:26 | Emergency (ER) | payer MEDICARE, SELFPAY ==
[2023-08-02] VITALS (40 sets, daily range): BP systolic 146–181; BP diastolic 47–83; PULSE 63–80; RESP 12–70; TEMP 36.4–37; O2SAT 96–100; BMI 34.0
--- NOTE | 2023-08-02 12:45 | HMH.EDGENADL ---
Discharge Plan Disposition Patient Disposition: Home, Self-Care Prescriptions Prescriptions: No Action Brilinta 90 mg tablet 90 mg PO BID Patient Comments: TAKE ONE TABLET BY MOUTH TWICE DAILY albuterol sulfate 90 mcg/actuation HFA aerosol inhaler 1 inh INHALATION QID PRN (Reason: shortness of breath or wheezing) Qty: 8.5 3RF losartan-hydrochlorothiazide 100-25 mg tablet 1 tab PO DAILY duloxetine [Cymbalta] 60 mg capsule,delayed release(DR/EC) 60 mg PO DAILY atorvastatin [Lipitor] 20 mg tablet 20 mg PO DAILY terbinafine HCl 250 mg tablet 250 mg PO DAILY aspirin 81 mg tablet,chewable 162 mg PO DAILY amlodipine 10 mg tablet 10 mg PO DAILY Qty: 90 3RF metformin 1,000 MG tablet 1,000 mg PO DAILY sitagliptin phosphate 50 mg tablet 100 mg PO DAILY carvedilol 12.5 MG tablet 12.5 mg PO BID Referrals Follow up/Referrals: Slim Aguilar MD [Staff Physician] - See instructions Jenelle Saez APRN [Primary Care Provider] - See instructions Activity Restrictions/Add. Instructions Additional Instructions/Restrictions: You were evaluated in the emergency department today. At this time, we are unsure of the cause of your anemia, however it likely has slowly and gradually accumulated secondary to a GI bleed given that you have had dark stools. For this, I recommend close follow-up for outpatient endoscopy. Please follow-up with general surgery. We have provided you with information for Dr. Aguilar so that she may contact them and schedule an appointment. They can help assist you with scheduling an outpatient endoscopy to further assess this. Avoid taking NSAIDs, like ibuprofen and Aleve. Return to the emergency department for new or worsening symptoms, such as lightheadedness, chest pain or shortness of breath, acute bleeding, or other concerns. Clinical Impressions Clinical Impression: Anemia Instructions Patient Instructions: DI for Iron Deficiency Anemia-Adult Discharge ED Provider: Mehreen Uribe General Adult HPI <Malik Donis MD - Last Filed: 08/02/23 15:11> General Chief complaint: Recheck/Abnormal Lab/Rx Stated complaint: blood infusion Time Seen by Provider: 08/02/23 11:28 Mode of Arrival: Wheelchair Source of Information: Patient and Relative Limitations: No Limitations Description of Symptoms (Recalled from ER Triage Doc. by RN): pt reports to ED for blood work. pts daughter in law and caregiver state that pt was seen by pcp office yesterday. they were called today by dr office to report a hemoglobin of 5.5. pt reports no bleeding seen, no melana, no vomitting, no shortness of air. History of Present Illness HPI narrative: 73-year-old female history hypertension, hyperlipidemia, CAD status post stenting, numerous ischemic strokes with residual deficit only on Eliquis twice daily presenting with anemia. Patient received blood work by PCP. They were called today and told to come to the emergency department. Patient is asymptomatic. Denies nausea, vomiting, abdominal pain, chest pain, dyspnea, lightheadedness, weakness, or any other concerns. She does state that her stool has been dark for the past few months, largely since December or January 2023. Related Data Home Medications Medication Instructions Recorded Confirmed metformin 1,000 mg tablet 1,000 mg PO DAILY Diabetes 06/01/19 11/06/22 aspirin 81 mg chewable tablet 162 mg PO DAILY . 07/17/21 11/06/22 atorvastatin 20 mg tablet (Lipitor) 20 mg PO DAILY . 07/17/21 11/06/22 duloxetine 60 mg capsule,delayed 60 mg PO DAILY . 07/17/21 11/06/22 release (Cymbalta) losartan 100 1 tab PO DAILY . 07/17/21 11/06/22 mg-hydrochlorothiazide 25 mg tablet sitagliptin phosphate 50 mg tablet 100 mg PO DAILY Diabetes 07/17/21 11/06/22 terbinafine HCl 250 mg tablet 250 mg PO DAILY . 07/17/21 11/06/22 carvedilol 12.5 mg tablet 12.5 mg PO BID HTN 08/07/21 11/06/22 ticagrelor 90 mg tablet (Brilinta) 90 mg PO BID . 10/23/21 11/06/22 Previous Rx's Medication Instructions Recorded albuterol sulfate 90 mcg/actuation 1 inh inhalation QID PRN shortness 10/22/20 aerosol inhaler of breath or wheezing #8.5 grams amlodipine 10 mg tablet 10 mg PO DAILY HTN #90 tabs 08/07/21 Allergies Allergy/AdvReac Type Severity Reaction Status Date / Time latex [LATEX] Allergy Intermediate I-RASH Verified 08/02/23 13:09 adhesive tape [ADHESIVE TAPE] Allergy Unknown Unknown Verified 08/02/23 13:09 allergy reaction lisinopril [LISINOPRIL] Allergy Unknown DORINDA COUGH Verified 08/02/23 13:09 Sulfa (Sulfonamide Allergy Unknown Unknown Verified 08/02/23 13:09 Antibiotics) allergy [SULFA (SULFONAMIDE reaction ANTIBIOTICS)] sulfamethoxazole Allergy Unknown Unknown Verified 08/02/23 13:09 [SULFAMETHOXAZOLE] allergy reaction trimethoprim [TRIMETHOPRIM] Allergy Unknown Unknown Verified 08/02/23 13:09 allergy reaction PFSH <Malik Donis MD - Last Filed: 08/02/23 15:11> PFS Disclaimer: The information contained in this section may have been updated after the patient was seen, as this information can be updated by other users. Medical History (Updated 08/02/23 @ 15:11 by Malik Donis MD) Abnormal electrocardiography CAD (coronary artery disease) Crescendo angina Dyspnea HLD (hyperlipidemia) HTN (hypertension) Morbid obesity with BMI of 40.0-44.9, adult TEODORO (obstructive sleep apnea) Social History Smoking Status: Never smoker alcohol intake: never substance use type: denies use current occupational status: employed Travel in the last 8 weeks: Inside the [place] household members: other housing: house current occupation: CPA Exchange caffeine: Yes <Malik Donis MD - Last Filed: 08/02/23 15:11> ROS Obtained: Yes All systems reviewed & no additional complaints except as documented Physical Exam <Malik Donis MD - Last Filed: 08/02/23 15:11> General General appearance: alert and in no apparent distress Head Head exam: atraumatic and normocephalic Eye Eye exam: Present normal appearance, PERRL and EOMI ENT ENT exam: Present mucous membranes moist Neck Neck exam: Present normal inspection, full ROM and trachea midline Respiratory Respiratory exam: Absent respiratory distress, wheezes, stridor, accessory muscle use or prolonged expiratory phase Cardiovascular Cardiovascular exam: Present normal rhythm Abdominal Exam Abdominal exam: Present soft; Absent distention, tenderness, guarding, rebound or rigidity Extremities Exam Extremities exam: Absent edema Neurological Exam Neurological exam: Present alert, oriented X3 and CN II-XII intact; Absent motor sensory deficit Skin Skin exam: Present warm, dry and pallor; Absent diaphoresis or erythema Medical Decision Making <Malik Donis MD - Last Filed: 08/02/23 15:11> Medical Records Medical records reviewed: Yes I reviewed the patient's medical records. Lon Inquiry Pt receiving controlled substance: No Lon was queried for this patient: No Vital Signs: 08/02/23 11:26 08/02/23 11:56 08/02/23 12:31 Temperature 98.6 F Temperature Source Oral Pulse Rate 80 72 Pulse Rate [Left Radial] 77 Respiratory Rate 15 TAR Vitals Timing Blood Pressure 172/66 H 157/75 H Blood Pressure [Right Arm] 172/66 H Blood Pressure Mean Blood Pressure Mean [Right Arm] 101 Blood Pressure Source Blood Pressure Position 02 Sat by Pulse Oximetry 98 97 96 Oxygen Delivery Method Room Air Room Air Room Air 08/02/23 13:04 08/02/23 13:31 08/02/23 13:54 Temperature Temperature Source Pulse Rate 68 67 Pulse Rate [Left Radial] 67 Respiratory Rate 18 20 TAR Vitals Timing Blood Pressure 180/76 H 177/67 H Blood Pressure [Right Arm] 174/76 H Blood Pressure Mean 87 Blood Pressure Mean [Right Arm] 108 Blood Pressure Source Blood Pressure Position 02 Sat by Pulse Oximetry 99 96 Oxygen Delivery Method Room Air 08/02/23 14:31 08/02/23 15:01 08/02/23 15:31 Temperature Temperature Source Pulse Rate 68 68 68 Pulse Rate [Left Radial] Respiratory Rate TAR Vitals Timing Blood Pressure 172/83 H 162/71 H 169/65 H Blood Pressure [Right Arm] Blood Pressure Mean 100 101 97 Blood Pressure Mean [Right Arm] Blood Pressure Source Blood Pressure Position 02 Sat by Pulse Oximetry 96 97 97 Oxygen Delivery Method Room Air Room Air Room Air 08/02/23 15:38 08/02/23 15:45 08/02/23 15:50 Temperature 98.0 F 98.1 F 97.9 F Temperature Source Oral Pulse Rate 66 70 64 Pulse Rate [Left Radial] Respiratory Rate 15 70 H 18 TAR Vitals Timing Start Vitals 5 Minute Blood Pressure 169/65 H 172/61 H 176/75 H Blood Pressure [Right Arm] Blood Pressure Mean 99 98 108 Blood Pressure Mean [Right Arm] Blood Pressure Source Blood Pressure Position 02 Sat by Pulse Oximetry 100 98 100 Oxygen Delivery Method 08/02/23 15:55 08/02/23 16:00 08/02/23 16:15 Temperature 97.9 F 97.9 F 98.5 F Temperature Source Oral Oral Oral Pulse Rate 63 64 63 Pulse Rate [Left Radial] Respiratory Rate 17 17 19 TAR Vitals Timing 10 Minute 15 Minute 30 Minute Blood Pressure 179/73 H 173/80 H 181/79 H Blood Pressure [Right Arm] Blood Pressure Mean 108 111 113 Blood Pressure Mean [Right Arm] Blood Pressure Source Blood Pressure Position 02 Sat by Pulse Oximetry 100 100 99 Oxygen Delivery Method 08/02/23 16:30 08/02/23 16:45 08/02/23 17:45 Temperature 98.0 F 98.0 F 98.2 F Temperature Source Oral Pulse Rate 64 65 71 Pulse Rate [Left Radial] Respiratory Rate 19 19 15 TAR Vitals Timing 45 Minute 60 Minute 60 Minute Blood Pressure 179/79 H 168/78 H 164/61 H Blood Pressure [Right Arm] Blood Pressure Mean 112 108 95 Blood Pressure Mean [Right Arm] Blood Pressure Source Blood Pressure Position 02 Sat by Pulse Oximetry 99 100 99 Oxygen Delivery Method 08/02/23 18:03 08/02/23 18:23 08/02/23 18:30 Temperature 98.2 F 97.6 F 98.0 F Temperature Source Oral Pulse Rate 72 65 68 Pulse Rate [Left Radial] Respiratory Rate 15 20 20 TAR Vitals Timing Completion Vitals Pre-Blood Vitals Start Vitals Blood Pressure 170/73 H 152/72 H Blood Pressure [Right Arm] Blood Pressure Mean 105 98 Blood Pressure Mean [Right Arm] Blood Pressure Source Blood Pressure Position 02 Sat by Pulse Oximetry 98 100 100 Oxygen Delivery Method 08/02/23 18:35 08/02/23 18:40 08/02/23 18:45 Temperature 98.3 F 98.0 F 98.1 F Temperature Source Oral Oral Pulse Rate 68 70 67 Pulse Rate [Left Radial] Respiratory Rate 20 18 19 TAR Vitals Timing 5 Minute 10 Minute 15 Minute Blood Pressure 167/71 H 173/69 H 175/73 H Blood Pressure [Right Arm] Blood Pressure Mean 103 103 107 Blood Pressure Mean [Right Arm] Blood Pressure Source Blood Pressure Position 02 Sat by Pulse Oximetry 99 100 100 Oxygen Delivery Method 08/02/23 19:00 08/02/23 19:15 08/02/23 19:30 Temperature 98.1 F 97.9 F 98.0 F Temperature Source Oral Oral Oral Pulse Rate 71 69 69 Pulse Rate [Left Radial] Respiratory Rate 19 20 17 TAR Vitals Timing 30 Minute 45 Minute 60 Minute Blood Pressure 168/71 H 170/74 H 173/74 H Blood Pressure [Right Arm] Blood Pressure Mean 103 106 107 Blood Pressure Mean [Right Arm] Blood Pressure Source Blood Pressure Position 02 Sat by Pulse Oximetry 97 97 99 Oxygen Delivery Method 08/02/23 20:30 08/02/23 20:34 08/02/23 21:10 Temperature 98.0 F 98.4 F 98.3 F Temperature Source Oral Oral Oral Pulse Rate 71 66 66 Pulse Rate [Left Radial] Respiratory Rate 19 16 18 TAR Vitals Timing 2nd Hour Completion Vitals Pre-Blood Vitals Blood Pressure 170/73 H 146/64 H 177/78 H Blood Pressure [Right Arm] Blood Pressure Mean 105 91 111 Blood Pressure Mean [Right Arm] Blood Pressure Source Automatic Cuff Blood Pressure Position Supine 02 Sat by Pulse Oximetry 100 99 99 Oxygen Delivery Method 08/02/23 21:23 08/02/23 21:28 08/02/23 21:33 Temperature 98.1 F 98.2 F 97.6 F Temperature Source Oral Oral Oral Pulse Rate 69 66 65 Pulse Rate [Left Radial] Respiratory Rate 18 16 15 TAR Vitals Timing Start Vitals 5 Minute 10 Minute Blood Pressure 173/80 H 172/72 H 170/75 H Blood Pressure [Right Arm] Blood Pressure Mean 111 105 106 Blood Pressure Mean [Right Arm] Blood Pressure Source Automatic Cuff Automatic Cuff Blood Pressure Position Supine Supine 02 Sat by Pulse Oximetry 99 100 99 Oxygen Delivery Method 08/02/23 21:34 08/02/23 21:38 08/02/23 21:53 Temperature 97.6 F 98.5 F 98.5 F Temperature Source Oral Oral Oral Pulse Rate 65 67 66 Pulse Rate [Left Radial] Respiratory Rate 15 15 16 TAR Vitals Timing 1 Hour Post Infusion 15 Minute 30 Minute Blood Pressure 170/75 H 169/73 H 169/75 H Blood Pressure [Right Arm] Blood Pressure Mean 106 105 106 Blood Pressure Mean [Right Arm] Blood Pressure Source Automatic Cuff Automatic Cuff Automatic Cuff Blood Pressure Position Supine Supine Supine 02 Sat by Pulse Oximetry 99 99 99 Oxygen Delivery Method 08/02/23 22:08 08/02/23 22:23 08/02/23 23:23 Temperature 98.2 F 97.8 F 98.1 F Temperature Source Oral Oral Oral Pulse Rate 64 65 67 Pulse Rate [Left Radial] Respiratory Rate 13 12 13 TAR Vitals Timing 45 Minute 60 Minute 2nd Hour Blood Pressure 154/62 H 147/47 H 165/65 H Blood Pressure [Right Arm] Blood Pressure Mean 92 80 98 Blood Pressure Mean [Right Arm] Blood Pressure Source Automatic Cuff Automatic Cuff Automatic Cuff Blood Pressure Position Supine Supine Supine 02 Sat by Pulse Oximetry 98 100 97 Oxygen Delivery Method 08/02/23 23:25 Temperature 97.7 F Temperature Source Oral Pulse Rate 71 Pulse Rate [Left Radial] Respiratory Rate 12 TAR Vitals Timing Completion Vitals Blood Pressure 155/66 H Blood Pressure [Right Arm] Blood Pressure Mean 95 Blood Pressure Mean [Right Arm] Blood Pressure Source Automatic Cuff Blood Pressure Position Supine 02 Sat by Pulse Oximetry 98 Oxygen Delivery Method Lab Data Lab Results 08/02/23 12:20: WBC 7.0, RBC 2.72 L, Hgb 5.5 L*, Hct 18.0 L*, MCV 66.3 L, MCH 20.2 L, MCHC 30.4 L, RDW 17.9 H, Plt Count 316, MPV 8.1, Neut % (Auto) 66.9, Lymph % (Auto) 26.2, Miner % (Auto) 4.9, Eos % (Auto) 1.8, Baso % (Auto) 0.3, Neut # (Auto) 4.7, Lymph # (Auto) 1.8, Miner # (Auto) 0.3, Eos # (Auto) 0.1, Baso # (Auto) 0.0, Sodium 139, Potassium 4.2, Chloride 110 H, Carbon Dioxide 24, Anion Gap 9.2, BUN 20 H, Creatinine 1.00, Estimated Creat Clear 85, Estimated GFR 55 L, Est GFR ( Amer) 66, Glucose 193 H, Calcium 8.8, Total Bilirubin 0.6, AST 36, ALT 20, Alkaline Phosphatase 62, Total Protein 7.1, Albumin 3.7, Globulin 3.4 H, Albumin/Globulin Ratio 1.1, Blood Type Confirm A Positive 08/02/23 12:57: Blood Type A Positive, Antibody Screen Negative, Crossmatch ([facility]) See Detail 08/02/23 12:20 08/02/23 12:20 Orders (Tests/Meds): ED MEDICATIONS Generic Name Dose Route Start Last Admin Trade Name Freq PRN Reason Stop Dose Admin Sodium Chloride 250 mls @ 25 mls/hr 08/02/23 14:30 08/02/23 14:30 Sod Chlor 0.9% 250ml Bag IV 08/03/23 14:29 25 mls/hr .Q10H ANTIONE Administration Discontinued Medications Generic Name Dose Route Start Last Admin Trade Name Chacha PRN Reason Stop Dose Admin Acetaminophen 1,000 mg 08/02/23 18:38 08/02/23 18:51 Acetaminophen 500mg Tab PO 08/02/23 18:39 1,000 mg ONCE ONE Administration Ondansetron HCl 4 mg 08/02/23 21:26 08/02/23 21:38 Ondansetron 4mg/2ml Vial IV 08/02/23 21:27 Not Given ONCE ONE Ondansetron HCl 4 mg 08/02/23 21:37 08/02/23 21:41 Ondansetron 4mg Odt SL 08/02/23 21:38 4 mg ONCE ONE Administration ORDERS Category Date Time Status Transfuse RBC's [Red Blood Cells] Stat BBK 08/02/23 12:57 Completed Type and Screen Stat BBK 08/02/23 12:57 Completed Complete Blood Count Auto Diff Stat Lab 08/02/23 12:20 Completed Comprehensive Metabolic Panel Stat Lab 08/02/23 12:20 Completed Medical Decision Narrative: 73-year-old female history hypertension, hyperlipidemia, CAD status post stenting, numerous ischemic strokes with residual deficit only on Eliquis twice daily presenting with anemia. Patient received blood work by PCP. They were called today and told to come to the emergency department. Patient is asymptomatic. Denies nausea, vomiting, abdominal pain, chest pain, dyspnea, lightheadedness, weakness, or any other concerns. She does state that her stool has been dark for the past few months, largely since December or January 2023. History was obtained via conversation with patient and family. On arrival, patient hemodynamically stable, alert, oriented x4, appropriate, GCS 15, moving all extremities spontaneously, pupils equal and reactive to light. Full physical exam performed and significant for pale patient without tachycardia, tachypnea, hypotension, or any other sequela of acute blood loss anemia. Neurologically at her baseline. Lungs are clear to auscultation, cardiac exam otherwise normal, abdomen is soft, nontender. Differential includes AVM, gastritis, peptic ulcer disease, upper GI bleed, lower GI bleed, among others. Patient was given 3 units of blood for symptomatic management and correction of underlying abnormalities. Workup independently interpreted and significant for a positive. Hemoglobin 5.5, hematocrit 18. Patient has a history of CAD, so plan to transfuse greater than 8. Nonactionable chemistry. See radiology read for full review of final results. Conversation was had with patient regarding admission versus outpatient transfusion, opting for outpatient management and transfusion here in the emergency department. 3 units of packed red blood cells were ordered, prior to transfusion, care ended up unknown physician. Patient was placed in observation beginning at 12 PM in order to transfuse and determine need for admission versus home-going. The patient was provided 3 units of blood while awaiting results. Prior to finishing observation, care handed off to oncoming physician. Independent interpretation of results demonstrated []. On reevaluation, []. At this time, I feel patient is appropriate [for admission/discharge]. Total observation time []. <Mehreen Uribe, DO - Last Filed: 08/02/23 22:52> Vital Signs: 08/02/23 11:26 08/02/23 11:56 08/02/23 12:31 Temperature 98.6 F Temperature Source Oral Pulse Rate 80 72 Pulse Rate [Left Radial] 77 Respiratory Rate 15 TAR Vitals Timing Blood Pressure 172/66 H 157/75 H Blood Pressure [Right Arm] 172/66 H Blood Pressure Mean Blood Pressure Mean [Right Arm] 101 Blood Pressure Source Blood Pressure Position 02 Sat by Pulse Oximetry 98 97 96 Oxygen Delivery Method Room Air Room Air Room Air 08/02/23 13:04 08/02/23 13:31 08/02/23 13:54 Temperature Temperature Source Pulse Rate 68 67 Pulse Rate [Left Radial] 67 Respiratory Rate 18 20 TAR Vitals Timing Blood Pressure 180/76 H 177/67 H Blood Pressure [Right Arm] 174/76 H Blood Pressure Mean 87 Blood Pressure Mean [Right Arm] 108 Blood Pressure Source Blood Pressure Position 02 Sat by Pulse Oximetry 99 96 Oxygen Delivery Method Room Air 08/02/23 14:31 08/02/23 15:01 08/02/23 15:31 Temperature Temperature Source Pulse Rate 68 68 68 Pulse Rate [Left Radial] Respiratory Rate TAR Vitals Timing Blood Pressure 172/83 H 162/71 H 169/65 H Blood Pressure [Right Arm] Blood Pressure Mean 100 101 97 Blood Pressure Mean [Right Arm] Blood Pressure Source Blood Pressure Position 02 Sat by Pulse Oximetry 96 97 97 Oxygen Delivery Method Room Air Room Air Room Air 08/02/23 15:38 08/02/23 15:45 08/02/23 15:50 Temperature 98.0 F 98.1 F 97.9 F Temperature Source Oral Pulse Rate 66 70 64 Pulse Rate [Left Radial] Respiratory Rate 15 70 H 18 TAR Vitals Timing Start Vitals 5 Minute Blood Pressure 169/65 H 172/61 H 176/75 H Blood Pressure [Right Arm] Blood Pressure Mean 99 98 108 Blood Pressure Mean [Right Arm] Blood Pressure Source Blood Pressure Position 02 Sat by Pulse Oximetry 100 98 100 Oxygen Delivery Method 08/02/23 15:55 08/02/23 16:00 08/02/23 16:15 Temperature 97.9 F 97.9 F 98.5 F Temperature Source Oral Oral Oral Pulse Rate 63 64 63 Pulse Rate [Left Radial] Respiratory Rate 17 17 19 TAR Vitals Timing 10 Minute 15 Minute 30 Minute Blood Pressure 179/73 H 173/80 H 181/79 H Blood Pressure [Right Arm] Blood Pressure Mean 108 111 113 Blood Pressure Mean [Right Arm] Blood Pressure Source Blood Pressure Position 02 Sat by Pulse Oximetry 100 100 99 Oxygen Delivery Method 08/02/23 16:30 08/02/23 16:45 08/02/23 17:45 Temperature 98.0 F 98.0 F 98.2 F Temperature Source Oral Pulse Rate 64 65 71 Pulse Rate [Left Radial] Respiratory Rate 19 19 15 TAR Vitals Timing 45 Minute 60 Minute 60 Minute Blood Pressure 179/79 H 168/78 H 164/61 H Blood Pressure [Right Arm] Blood Pressure Mean 112 108 95 Blood Pressure Mean [Right Arm] Blood Pressure Source Blood Pressure Position 02 Sat by Pulse Oximetry 99 100 99 Oxygen Delivery Method 08/02/23 18:03 08/02/23 18:23 08/02/23 18:30 Temperature 98.2 F 97.6 F 98.0 F Temperature Source Oral Pulse Rate 72 65 68 Pulse Rate [Left Radial] Respiratory Rate 15 20 20 TAR Vitals Timing Completion Vitals Pre-Blood Vitals Start Vitals Blood Pressure 170/73 H 152/72 H Blood Pressure [Right Arm] Blood Pressure Mean 105 98 Blood Pressure Mean [Right Arm] Blood Pressure Source Blood Pressure Position 02 Sat by Pulse Oximetry 98 100 100 Oxygen Delivery Method 08/02/23 18:35 08/02/23 18:40 08/02/23 18:45 Temperature 98.3 F 98.0 F 98.1 F Temperature Source Oral Oral Pulse Rate 68 70 67 Pulse Rate [Left Radial] Respiratory Rate 20 18 19 TAR Vitals Timing 5 Minute 10 Minute 15 Minute Blood Pressure 167/71 H 173/69 H 175/73 H Blood Pressure [Right Arm] Blood Pressure Mean 103 103 107 Blood Pressure Mean [Right Arm] Blood Pressure Source Blood Pressure Position 02 Sat by Pulse Oximetry 99 100 100 Oxygen Delivery Method 08/02/23 19:00 08/02/23 19:15 08/02/23 19:30 Temperature 98.1 F 97.9 F 98.0 F Temperature Source Oral Oral Oral Pulse Rate 71 69 69 Pulse Rate [Left Radial] Respiratory Rate 19 20 17 TAR Vitals Timing 30 Minute 45 Minute 60 Minute Blood Pressure 168/71 H 170/74 H 173/74 H Blood Pressure [Right Arm] Blood Pressure Mean 103 106 107 Blood Pressure Mean [Right Arm] Blood Pressure Source Blood Pressure Position 02 Sat by Pulse Oximetry 97 97 99 Oxygen Delivery Method 08/02/23 20:30 08/02/23 20:34 08/02/23 21:10 Temperature 98.0 F 98.4 F 98.3 F Temperature Source Oral Oral Oral Pulse Rate 71 66 66 Pulse Rate [Left Radial] Respiratory Rate 19 16 18 TAR Vitals Timing 2nd Hour Completion Vitals Pre-Blood Vitals Blood Pressure 170/73 H 146/64 H 177/78 H Blood Pressure [Right Arm] Blood Pressure Mean 105 91 111 Blood Pressure Mean [Right Arm] Blood Pressure Source Automatic Cuff Blood Pressure Position Supine 02 Sat by Pulse Oximetry 100 99 99 Oxygen Delivery Method 08/02/23 21:23 08/02/23 21:28 08/02/23 21:33 Temperature 98.1 F 98.2 F 97.6 F Temperature Source Oral Oral Oral Pulse Rate 69 66 65 Pulse Rate [Left Radial] Respiratory Rate 18 16 15 TAR Vitals Timing Start Vitals 5 Minute 10 Minute Blood Pressure 173/80 H 172/72 H 170/75 H Blood Pressure [Right Arm] Blood Pressure Mean 111 105 106 Blood Pressure Mean [Right Arm] Blood Pressure Source Automatic Cuff Automatic Cuff Blood Pressure Position Supine Supine 02 Sat by Pulse Oximetry 99 100 99 Oxygen Delivery Method 08/02/23 21:34 08/02/23 21:38 08/02/23 21:53 Temperature 97.6 F 98.5 F 98.5 F Temperature Source Oral Oral Oral Pulse Rate 65 67 66 Pulse Rate [Left Radial] Respiratory Rate 15 15 16 TAR Vitals Timing 1 Hour Post Infusion 15 Minute 30 Minute Blood Pressure 170/75 H 169/73 H 169/75 H Blood Pressure [Right Arm] Blood Pressure Mean 106 105 106 Blood Pressure Mean [Right Arm] Blood Pressure Source Automatic Cuff Automatic Cuff Automatic Cuff Blood Pressure Position Supine Supine Supine 02 Sat by Pulse Oximetry 99 99 99 Oxygen Delivery Method 08/02/23 22:08 08/02/23 22:23 08/02/23 23:23 Temperature 98.2 F 97.8 F 98.1 F Temperature Source Oral Oral Oral Pulse Rate 64 65 67 Pulse Rate [Left Radial] Respiratory Rate 13 12 13 TAR Vitals Timing 45 Minute 60 Minute 2nd Hour Blood Pressure 154/62 H 147/47 H 165/65 H Blood Pressure [Right Arm] Blood Pressure Mean 92 80 98 Blood Pressure Mean [Right Arm] Blood Pressure Source Automatic Cuff Automatic Cuff Automatic Cuff Blood Pressure Position Supine Supine Supine 02 Sat by Pulse Oximetry 98 100 97 Oxygen Delivery Method 08/02/23 23:25 Temperature 97.7 F Temperature Source Oral Pulse Rate 71 Pulse Rate [Left Radial] Respiratory Rate 12 TAR Vitals Timing Completion Vitals Blood Pressure 155/66 H Blood Pressure [Right Arm] Blood Pressure Mean 95 Blood Pressure Mean [Right Arm] Blood Pressure Source Automatic Cuff Blood Pressure Position Supine 02 Sat by Pulse Oximetry 98 Oxygen Delivery Method Lab Data Lab Results 08/02/23 12:20: WBC 7.0, RBC 2.72 L, Hgb 5.5 L*, Hct 18.0 L*, MCV 66.3 L, MCH 20.2 L, MCHC 30.4 L, RDW 17.9 H, Plt Count 316, MPV 8.1, Neut % (Auto) 66.9, Lymph % (Auto) 26.2, Miner % (Auto) 4.9, Eos % (Auto) 1.8, Baso % (Auto) 0.3, Neut # (Auto) 4.7, Lymph # (Auto) 1.8, Miner # (Auto) 0.3, Eos # (Auto) 0.1, Baso # (Auto) 0.0, Sodium 139, Potassium 4.2, Chloride 110 H, Carbon Dioxide 24, Anion Gap 9.2, BUN 20 H, Creatinine 1.00, Estimated Creat Clear 85, Estimated GFR 55 L, Est GFR ( Amer) 66, Glucose 193 H, Calcium 8.8, Total Bilirubin 0.6, AST 36, ALT 20, Alkaline Phosphatase 62, Total Protein 7.1, Albumin 3.7, Globulin 3.4 H, Albumin/Globulin Ratio 1.1, Blood Type Confirm A Positive 08/02/23 12:57: Blood Type A Positive, Antibody Screen Negative, Crossmatch ([facility]) See Detail Orders (Tests/Meds): ED MEDICATIONS Generic Name Dose Route Start Last Admin Trade Name Freq PRN Reason Stop Dose Admin Sodium Chloride 250 mls @ 25 mls/hr 08/02/23 14:30 08/02/23 14:30 Sod Chlor 0.9% 250ml Bag IV 08/03/23 14:29 25 mls/hr .Q10H ANTIONE Administration Discontinued Medications Generic Name Dose Route Start Last Admin Trade Name Freq PRN Reason Stop Dose Admin Acetaminophen 1,000 mg 08/02/23 18:38 08/02/23 18:51 Acetaminophen 500mg Tab PO 08/02/23 18:39 1,000 mg ONCE ONE Administration Ondansetron HCl 4 mg 08/02/23 21:26 08/02/23 21:38 Ondansetron 4mg/2ml Vial IV 08/02/23 21:27 Not Given ONCE ONE Ondansetron HCl 4 mg 08/02/23 21:37 08/02/23 21:41 Ondansetron 4mg Odt SL 08/02/23 21:38 4 mg ONCE ONE Administration ORDERS Category Date Time Status Transfuse RBC's [Red Blood Cells] Stat K 08/02/23 12:57 Completed Type and Screen Stat BBK 08/02/23 12:57 Completed Complete Blood Count Auto Diff Stat Lab 08/02/23 12:20 Completed Comprehensive Metabolic Panel Stat Lab 08/02/23 12:20 Completed Medical Decision Narrative: 73-year-old female history hypertension, hyperlipidemia, CAD status post stenting, numerous ischemic strokes with residual deficit only on Eliquis twice daily presenting with anemia. Patient received blood work by PCP. They were called today and told to come to the emergency department. Patient is asymptomatic. Denies nausea, vomiting, abdominal pain, chest pain, dyspnea, lightheadedness, weakness, or any other concerns. She does state that her stool has been dark for the past few months, largely since December or January 2023. History was obtained via conversation with patient and family. On arrival, patient hemodynamically stable, alert, oriented x4, appropriate, GCS 15, moving all extremities spontaneously, pupils equal and reactive to light. Full physical exam performed and significant for pale patient without tachycardia, tachypnea, hypotension, or any other sequela of acute blood loss anemia. Neurologically at her baseline. Lungs are clear to auscultation, cardiac exam otherwise normal, abdomen is soft, nontender. Differential includes AVM, gastritis, peptic ulcer disease, upper GI bleed, lower GI bleed, among others. Patient was given 3 units of blood for symptomatic management and correction of underlying abnormalities. Workup independently interpreted and significant for a positive. Hemoglobin 5.5, hematocrit 18. Patient has a history of CAD, so plan to transfuse greater than 8. Nonactionable chemistry. See radiology read for full review of final results. Conversation was had with patient regarding admission versus outpatient transfusion, opting for outpatient management and transfusion here in the emergency department. 3 units of packed red blood cells were ordered, prior to transfusion, care ended up unknown physician. Patient was placed in observation beginning at 12 PM in order to transfuse and determine need for admission versus home-going. The patient was provided 3 units of blood while awaiting results. DO Rony: I observed the patient from 3pm-11pm on 08/02/23 as she received blood product. I had a long discussion with patient and her family and they advised that she has not been symptomatic from this at all. She has had dark stools since last year, but she has not had chest pain, lightheadedness, shortness of breath, or other concerns. No active acute new bleeding. I advised him that given that she has been asymptomatic and has had normal vital signs, I do feel that she would benefit from outpatient evaluation for possible GI bleeding that is very slow. Advised that they follow-up with general surgery or gastroenterology for this. They stated they were familiar with Dr. Aguilar, so I provided them his information. I considered admission given the amount of blood product that she is receiving as well as her degree of anemia, however based on reassuring vitals and chronicity of symptoms, patient would prefer to go home if able. Transfusion is ongoing at this time but is nearly complete. Patient care signed out to the oncoming provider, Dr. Whaley, pending completion of transfusion and reassessment. Prior to finishing observation, care handed off to oncoming physician. Independent interpretation of results demonstrated []. On reevaluation, []. At this time, I feel patient is appropriate [for admission/discharge]. Total observation time []. <Leonel Whaley MD - Last Filed: 08/03/23 00:19> Vital Signs: 08/02/23 11:26 08/02/23 11:56 08/02/23 12:31 Temperature 98.6 F Temperature Source Oral Pulse Rate 80 72 Pulse Rate [Left Radial] 77 Respiratory Rate 15 TAR Vitals Timing Blood Pressure 172/66 H 157/75 H Blood Pressure [Right Arm] 172/66 H Blood Pressure Mean Blood Pressure Mean [Right Arm] 101 Blood Pressure Source Blood Pressure Position 02 Sat by Pulse Oximetry 98 97 96 Oxygen Delivery Method Room Air Room Air Room Air 08/02/23 13:04 08/02/23 13:31 08/02/23 13:54 Temperature Temperature Source Pulse Rate 68 67 Pulse Rate [Left Radial] 67 Respiratory Rate 18 20 TAR Vitals Timing Blood Pressure 180/76 H 177/67 H Blood Pressure [Right Arm] 174/76 H Blood Pressure Mean 87 Blood Pressure Mean [Right Arm] 108 Blood Pressure Source Blood Pressure Position 02 Sat by Pulse Oximetry 99 96 Oxygen Delivery Method Room Air 08/02/23 14:31 08/02/23 15:01 08/02/23 15:31 Temperature Temperature Source Pulse Rate 68 68 68 Pulse Rate [Left Radial] Respiratory Rate TAR Vitals Timing Blood Pressure 172/83 H 162/71 H 169/65 H Blood Pressure [Right Arm] Blood Pressure Mean 100 101 97 Blood Pressure Mean [Right Arm] Blood Pressure Source Blood Pressure Position 02 Sat by Pulse Oximetry 96 97 97 Oxygen Delivery Method Room Air Room Air Room Air 08/02/23 15:38 08/02/23 15:45 08/02/23 15:50 Temperature 98.0 F 98.1 F 97.9 F Temperature Source Oral Pulse Rate 66 70 64 Pulse Rate [Left Radial] Respiratory Rate 15 70 H 18 TAR Vitals Timing Start Vitals 5 Minute Blood Pressure 169/65 H 172/61 H 176/75 H Blood Pressure [Right Arm] Blood Pressure Mean 99 98 108 Blood Pressure Mean [Right Arm] Blood Pressure Source Blood Pressure Position 02 Sat by Pulse Oximetry 100 98 100 Oxygen Delivery Method 08/02/23 15:55 08/02/23 16:00 08/02/23 16:15 Temperature 97.9 F 97.9 F 98.5 F Temperature Source Oral Oral Oral Pulse Rate 63 64 63 Pulse Rate [Left Radial] Respiratory Rate 17 17 19 TAR Vitals Timing 10 Minute 15 Minute 30 Minute Blood Pressure 179/73 H 173/80 H 181/79 H Blood Pressure [Right Arm] Blood Pressure Mean 108 111 113 Blood Pressure Mean [Right Arm] Blood Pressure Source Blood Pressure Position 02 Sat by Pulse Oximetry 100 100 99 Oxygen Delivery Method 08/02/23 16:30 08/02/23 16:45 08/02/23 17:45 Temperature 98.0 F 98.0 F 98.2 F Temperature Source Oral Pulse Rate 64 65 71 Pulse Rate [Left Radial] Respiratory Rate 19 19 15 TAR Vitals Timing 45 Minute 60 Minute 60 Minute Blood Pressure 179/79 H 168/78 H 164/61 H Blood Pressure [Right Arm] Blood Pressure Mean 112 108 95 Blood Pressure Mean [Right Arm] Blood Pressure Source Blood Pressure Position 02 Sat by Pulse Oximetry 99 100 99 Oxygen Delivery Method 08/02/23 18:03 08/02/23 18:23 08/02/23 18:30 Temperature 98.2 F 97.6 F 98.0 F Temperature Source Oral Pulse Rate 72 65 68 Pulse Rate [Left Radial] Respiratory Rate 15 20 20 TAR Vitals Timing Completion Vitals Pre-Blood Vitals Start Vitals Blood Pressure 170/73 H 152/72 H Blood Pressure [Right Arm] Blood Pressure Mean 105 98 Blood Pressure Mean [Right Arm] Blood Pressure Source Blood Pressure Position 02 Sat by Pulse Oximetry 98 100 100 Oxygen Delivery Method 08/02/23 18:35 08/02/23 18:40 08/02/23 18:45 Temperature 98.3 F 98.0 F 98.1 F Temperature Source Oral Oral Pulse Rate 68 70 67 Pulse Rate [Left Radial] Respiratory Rate 20 18 19 TAR Vitals Timing 5 Minute 10 Minute 15 Minute Blood Pressure 167/71 H 173/69 H 175/73 H Blood Pressure [Right Arm] Blood Pressure Mean 103 103 107 Blood Pressure Mean [Right Arm] Blood Pressure Source Blood Pressure Position 02 Sat by Pulse Oximetry 99 100 100 Oxygen Delivery Method 08/02/23 19:00 08/02/23 19:15 08/02/23 19:30 Temperature 98.1 F 97.9 F 98.0 F Temperature Source Oral Oral Oral Pulse Rate 71 69 69 Pulse Rate [Left Radial] Respiratory Rate 19 20 17 TAR Vitals Timing 30 Minute 45 Minute 60 Minute Blood Pressure 168/71 H 170/74 H 173/74 H Blood Pressure [Right Arm] Blood Pressure Mean 103 106 107 Blood Pressure Mean [Right Arm] Blood Pressure Source Blood Pressure Position 02 Sat by Pulse Oximetry 97 97 99 Oxygen Delivery Method 08/02/23 20:30 08/02/23 20:34 08/02/23 21:10 Temperature 98.0 F 98.4 F 98.3 F Temperature Source Oral Oral Oral Pulse Rate 71 66 66 Pulse Rate [Left Radial] Respiratory Rate 19 16 18 TAR Vitals Timing 2nd Hour Completion Vitals Pre-Blood Vitals Blood Pressure 170/73 H 146/64 H 177/78 H Blood Pressure [Right Arm] Blood Pressure Mean 105 91 111 Blood Pressure Mean [Right Arm] Blood Pressure Source Automatic Cuff Blood Pressure Position Supine 02 Sat by Pulse Oximetry 100 99 99 Oxygen Delivery Method 08/02/23 21:23 08/02/23 21:28 08/02/23 21:33 Temperature 98.1 F 98.2 F 97.6 F Temperature Source Oral Oral Oral Pulse Rate 69 66 65 Pulse Rate [Left Radial] Respiratory Rate 18 16 15 TAR Vitals Timing Start Vitals 5 Minute 10 Minute Blood Pressure 173/80 H 172/72 H 170/75 H Blood Pressure [Right Arm] Blood Pressure Mean 111 105 106 Blood Pressure Mean [Right Arm] Blood Pressure Source Automatic Cuff Automatic Cuff Blood Pressure Position Supine Supine 02 Sat by Pulse Oximetry 99 100 99 Oxygen Delivery Method 08/02/23 21:34 08/02/23 21:38 08/02/23 21:53 Temperature 97.6 F 98.5 F 98.5 F Temperature Source Oral Oral Oral Pulse Rate 65 67 66 Pulse Rate [Left Radial] Respiratory Rate 15 15 16 TAR Vitals Timing 1 Hour Post Infusion 15 Minute 30 Minute Blood Pressure 170/75 H 169/73 H 169/75 H Blood Pressure [Right Arm] Blood Pressure Mean 106 105 106 Blood Pressure Mean [Right Arm] Blood Pressure Source Automatic Cuff Automatic Cuff Automatic Cuff Blood Pressure Position Supine Supine Supine 02 Sat by Pulse Oximetry 99 99 99 Oxygen Delivery Method 08/02/23 22:08 08/02/23 22:23 08/02/23 23:23 Temperature 98.2 F 97.8 F 98.1 F Temperature Source Oral Oral Oral Pulse Rate 64 65 67 Pulse Rate [Left Radial] Respiratory Rate 13 12 13 TAR Vitals Timing 45 Minute 60 Minute 2nd Hour Blood Pressure 154/62 H 147/47 H 165/65 H Blood Pressure [Right Arm] Blood Pressure Mean 92 80 98 Blood Pressure Mean [Right Arm] Blood Pressure Source Automatic Cuff Automatic Cuff Automatic Cuff Blood Pressure Position Supine Supine Supine 02 Sat by Pulse Oximetry 98 100 97 Oxygen Delivery Method 08/02/23 23:25 Temperature 97.7 F Temperature Source Oral Pulse Rate 71 Pulse Rate [Left Radial] Respiratory Rate 12 TAR Vitals Timing Completion Vitals Blood Pressure 155/66 H Blood Pressure [Right Arm] Blood Pressure Mean 95 Blood Pressure Mean [Right Arm] Blood Pressure Source Automatic Cuff Blood Pressure Position Supine 02 Sat by Pulse Oximetry 98 Oxygen Delivery Method Lab Data Lab Results 08/02/23 12:20: WBC 7.0, RBC 2.72 L, Hgb 5.5 L*, Hct 18.0 L*, MCV 66.3 L, MCH 20.2 L, MCHC 30.4 L, RDW 17.9 H, Plt Count 316, MPV 8.1, Neut % (Auto) 66.9, Lymph % (Auto) 26.2, Miner % (Auto) 4.9, Eos % (Auto) 1.8, Baso % (Auto) 0.3, Neut # (Auto) 4.7, Lymph # (Auto) 1.8, Miner # (Auto) 0.3, Eos # (Auto) 0.1, Baso # (Auto) 0.0, Sodium 139, Potassium 4.2, Chloride 110 H, Carbon Dioxide 24, Anion Gap 9.2, BUN 20 H, Creatinine 1.00, Estimated Creat Clear 85, Estimated GFR 55 L, Est GFR ( Amer) 66, Glucose 193 H, Calcium 8.8, Total Bilirubin 0.6, AST 36, ALT 20, Alkaline Phosphatase 62, Total Protein 7.1, Albumin 3.7, Globulin 3.4 H, Albumin/Globulin Ratio 1.1, Blood Type Confirm A Positive 08/02/23 12:57: Blood Type A Positive, Antibody Screen Negative, Crossmatch ([facility]) See Detail Orders (Tests/Meds): ED MEDICATIONS Generic Name Dose Route Start Last Admin Trade Name Freq PRN Reason Stop Dose Admin Sodium Chloride 250 mls @ 25 mls/hr 08/02/23 14:30 08/02/23 14:30 Sod Chlor 0.9% 250ml Bag IV 08/03/23 14:29 25 mls/hr .Q10H ANTIONE Administration Discontinued Medications Generic Name Dose Route Start Last Admin Trade Name Freq PRN Reason Stop Dose Admin Acetaminophen 1,000 mg 08/02/23 18:38 08/02/23 18:51 Acetaminophen 500mg Tab PO 08/02/23 18:39 1,000 mg ONCE ONE Administration Ondansetron HCl 4 mg 08/02/23 21:26 08/02/23 21:38 Ondansetron 4mg/2ml Vial IV 08/02/23 21:27 Not Given ONCE ONE Ondansetron HCl 4 mg 08/02/23 21:37 08/02/23 21:41 Ondansetron 4mg Odt SL 08/02/23 21:38 4 mg ONCE ONE Administration ORDERS Category Date Time Status Transfuse RBC's [Red Blood Cells] Stat BBK 08/02/23 12:57 Completed Type and Screen Stat BBK 08/02/23 12:57 Completed Complete Blood Count Auto Diff Stat Lab 08/02/23 12:20 Completed Comprehensive Metabolic Panel Stat Lab 08/02/23 12:20 Completed Medical Decision Narrative: 73-year-old female history hypertension, hyperlipidemia, CAD status post stenting, numerous ischemic strokes with residual deficit only on Eliquis twice daily presenting with anemia. Patient received blood work by PCP. They were called today and told to come to the emergency department. Patient is asymptomatic. Denies nausea, vomiting, abdominal pain, chest pain, dyspnea, lightheadedness, weakness, or any other concerns. She does state that her stool has been dark for the past few months, largely since December or January 2023. History was obtained via conversation with patient and family. On arrival, patient hemodynamically stable, alert, oriented x4, appropriate, GCS 15, moving all extremities spontaneously, pupils equal and reactive to light. Full physical exam performed and significant for pale patient without tachycardia, tachypnea, hypotension, or any other sequela of acute blood loss anemia. Neurologically at her baseline. Lungs are clear to auscultation, cardiac exam otherwise normal, abdomen is soft, nontender. Differential includes AVM, gastritis, peptic ulcer disease, upper GI bleed, lower GI bleed, among others. Patient was given 3 units of blood for symptomatic management and correction of underlying abnormalities. Workup independently interpreted and significant for a positive. Hemoglobin 5.5, hematocrit 18. Patient has a history of CAD, so plan to transfuse greater than 8. Nonactionable chemistry. See radiology read for full review of final results. Conversation was had with patient regarding admission versus outpatient transfusion, opting for outpatient management and transfusion here in the emergency department. 3 units of packed red blood cells were ordered, prior to transfusion, care ended up unknown physician. Patient was placed in observation beginning at 12 PM in order to transfuse and determine need for admission versus home-going. The patient was provided 3 units of blood while awaiting results. DO Rony: I observed the patient from 3pm-11pm on 08/02/23 as she received blood product. I had a long discussion with patient and her family and they advised that she has not been symptomatic from this at all. She has had dark stools since last year, but she has not had chest pain, lightheadedness, shortness of breath, or other concerns. No active acute new bleeding. I advised him that given that she has been asymptomatic and has had normal vital signs, I do feel that she would benefit from outpatient evaluation for possible GI bleeding that is very slow. Advised that they follow-up with general surgery or gastroenterology for this. They stated they were familiar with Dr. Aguilar, so I provided them his information. I considered admission given the amount of blood product that she is receiving as well as her degree of anemia, however based on reassuring vitals and chronicity of symptoms, patient would prefer to go home if able. Transfusion is ongoing at this time but is nearly complete. Patient care signed out to the oncoming provider, Dr. Whaley, pending completion of transfusion and reassessment. Prior to finishing observation, care handed off to oncoming physician. Judd JUSTIN: I assumed care of the patient at the time of handoff from the prior provider. On reevaluation, patient troy hemodynamically stable and well-appearing. Patient finished her third unit of transfusion and was observed for an additional hour afterwards. No evidence of acute transfusion reaction or volume overload secondary to transfusion. At this time, I feel patient is appropriate for discharge with close outpatient follow-up with PCP and general surgery for further workup of anemia. Observation was discontinued at 12:15 AM on 08/03/23. Total observation time 12 hours and 15 minutes. I had an interactive [id number] visit with the patient and provided them discharge instructions. The total time involved in discharging this patient was less than 30 minutes. Critical Care <Malik Donis MD - Last Filed: 08/02/23 15:11> Critical Care Time Critical Care Time: Yes (heme) Attestation: On 08/02/23, the high probability of a clinically significant, sudden or life threatening deterioration of the following system(s) required my full and direct attention, intervention and personal management. The time I documented below is in addition to time spent performing reported procedures but includes the following listed in this critical care notation. Total Time Total Critical Care Time: 60
--- NOTE | 2023-08-02 12:48 | PC.NURSE ---
pt is sleeping in bed no needs at this time,call light and family at bs
[2023-08-02 12:49] LABS: Basophils % 0.3 % (0.1-2.0); Chloride 110 mmol/L (98-107); Eosinophils # 0.1 K/mm3 (0.0-0.4); Eosinophils % 1.8 % (0.1-12.0); Lymphocytes # 1.8 K/mm3 (0.7-4.5); Lymphocytes % 26.2 % (10-50); Mean Corpuscular HGB Conc 30.4 g/dL (31.8-35.4); Mean Corpuscular Hemoglobin 20.2 pg (27.0-31.2); Mean Corpuscular Volume 66.3 fl (81-99); Mean Platelet Volume 8.1 fl (7.4-10.4); Monocytes # 0.3 K/mm3 (0.1-1.0); Monocytes % 4.9 % (1.7-9.3); Neutrophils # 4.7 K/mm3 (1.8-7.8); Neutrophils % 66.9 % (37.0-80.0); Platelet Count 316 K/mm3 (142-424); Potassium 4.2 mmoL/L (3.5-5.1); Red Blood Count 2.72 M/mm3 (4.20-5.40); Red Cell Distribution Width 17.9 % (11.5-17.5); Sodium 139 mmol/L (136-145)
[2023-08-02 12:52] LABS: Alanine Aminotransferase 20 U/L (12-78); Albumin Level 3.7 g/dl (3.5-5.0); Albumin/Globulin Ratio 1.1 (1.1-1.8); Alkaline Phosphatase 62 U/L (38-126); Anion Gap 9.2 mEq/L (5-15); Aspartate Amino Transferase 36 U/L (14-36); Bilirubin,Total 0.6 mg/dl (0.2-1.3); Blood Urea Nitrogen 20 mg/dl (7-17); Calcium 8.8 mg/dl (8.4-10.2); Carbon Dioxide 24 mmol/L (22.0-30.0); Creatinine Clearance Estimated 85 mL/min (50-200); Estimated Glomerular Filt Rate 55 ml/min (>60); GFR (African American) 66 ML/MIN (>60); Globulin 3.4 g/dL (1.3-3.2); Glucose 193 mg/dl (74-100); Total Protein,Serum 7.1 g/dl (6.3-8.2)
[2023-08-02 13:26] LABS: Hemoglobin 5.5 g/dL (12.2-16.2)
[2023-08-02] MEDS: 0.9 % SODIUM CHLORIDE 250 ML 25 ML IV (14:30)
--- NOTE | 2023-08-02 17:32 | PC.NURSE ---
pt repositioned in bed, supper provided for pt and visitor. call light within reach. no needs at this time
--- NOTE | 2023-08-02 18:33 | PC.NURSE ---
bp at 1830 175/70
[2023-08-02] MEDS: ACETAMINOPHEN 500MG TAB 1000 MG PO (18:51)
--- NOTE | 2023-08-02 19:15 | PC.NURSE ---
Assumed care of pt, an rounded on pt at this time. Pt voices no needs.
--- NOTE | 2023-08-02 20:17 | PC.NURSE ---
Rounded on pt multiple times. Pt has no complaints. Family at bedside. Voices no needs
[2023-08-02] MEDS: ONDANSETRON 4MG ODT 4 MG SL (21:41)
--- NOTE | 2023-08-03 00:18 | PC.NURSE ---
Pt laying in bed at this time. Pt voices no complaints. LS clear, denies SOA, VSS and charted on TAR. Pt states she is ready to go home and is feeling much better.
[2023-08-03 00:25] VITALS: BP 165/75; PULSE 69; RESP 13; TEMP 36.6; O2SAT 99
[2023-08-03 00:38] VITALS: BP 165/75; PULSE 69; RESP 13; TEMP 36.6; O2SAT 99
== END 2023-08-03 00:26 | disposition home or self-care (01) ==
PROVIDERS: Emergency Medicine; Emergency Provider Emergency Medicine; PCP Nurse Practitioner
DX: D64.9 Anemia, unspecified (principal); I10 Essential (primary) hypertension; E78.5 Hyperlipidemia, unspecified; I25.118 Atherosclerotic heart disease of native coronary artery with other forms of angina pectoris; I69.30 Unspecified sequelae of cerebral infarction; G47.33 Obstructive sleep apnea (adult) (pediatric)
CPT/HCPCS: 36430; 80053; 85025; 86850; 99291; P9016

== ENCOUNTER 2023-09-01 14:49 | Outpatient (CLI) | payer MEDICARE, SELFPAY ==
[2023-09-01 15:40] LABS: Basophils % 0.3 % (0.1-2.0); Eosinophils # 0.1 K/mm3 (0.0-0.4); Eosinophils % 1.7 % (0.1-12.0); Hematocrit 28.4 % (37.0-47.0); Hemoglobin 8.5 g/dL (12.2-16.2); Lymphocytes % 34.2 % (10-50); Mean Corpuscular HGB Conc 29.9 g/dL (31.8-35.4); Mean Corpuscular Hemoglobin 23.4 pg (27.0-31.2); Mean Corpuscular Volume 78.4 fl (81-99); Monocytes # 0.4 K/mm3 (0.1-1.0); Monocytes % 6.4 % (1.7-9.3); Neutrophils # 3.3 K/mm3 (1.8-7.8); Neutrophils % 57.4 % (37.0-80.0); Platelet Count 315 K/mm3 (142-424); Red Blood Count 3.62 M/mm3 (4.20-5.40); Red Cell Distribution Width 22.4 % (11.5-17.5); White Blood Count 5.7 K/mm3 (4.8-10.8)
[2023-09-01 16:08] LABS: Iron 29 ug/dL (37-170)
[2023-09-01 16:18] LABS: Total Iron Binding Capacity 451 ug/dL (265-497)
[2023-09-01 16:44] LABS: Ferritin 7.13 ng/ml (11.1-264)
== END 2023-09-01 23:59 ==
LOC: LAB 14:50
PROVIDERS: PCP Nurse Practitioner; Visit Provider Internal Medicine Medical Oncology
DX: D64.9 Anemia, unspecified (principal)
CPT/HCPCS: 36415; 82728; 83540; 83550; 85025

== ENCOUNTER 2023-09-05 10:45 | Outpatient (CLI) | payer MEDICARE, SELFPAY ==
--- NOTE | 2023-09-05 14:19 | PC.NURSE ---
1120 Unable to obtain IV access for Venofer infusion. Unsuccessful sticks x3 and unsuccessful ultrasound guided sticks x3, for total of 6 IV sticks. Patient rescheduled for Tuesday09/09/23 at 1030am. Patient tolerated well. Patient discharged home/stable with no problems noted.
== END 2023-09-05 11:20 | disposition home or self-care (01) ==
LOC: INF 10:45
PROVIDERS: Visit Provider Internal Medicine Medical Oncology
DX: D50.0 Iron deficiency anemia secondary to blood loss (chronic) (principal)

== ENCOUNTER 2023-09-09 10:36 | Outpatient (CLI) | payer MEDICARE, SELFPAY ==
[2023-09-09 10:52] VITALS: BP 130/78; PULSE 78; RESP 18; TEMP 37; O2SAT 100; BMI 36.5
[2023-09-09] MEDS: SODIUM CHLORIDE 0.9% 50ML BAG 50 ML IV (10:53)
[2023-09-09] MEDS: SODIUM CHLORIDE 0.9% 10ML FLUSH SYRINGE 10 ML IV (10:53)
[2023-09-09] MEDS: IRON SUCROSE COMPLEX 200 MG in 0.9 % SODIUM CHLORIDE 100 ML 220 MG IV (11:00)
[2023-09-09 11:35] VITALS: BP 151/64; PULSE 72; RESP 16; O2SAT 99
== END 2023-09-09 11:36 | disposition home or self-care (01) ==
LOC: INF 10:37
PROVIDERS: Visit Provider Internal Medicine Medical Oncology
DX: D50.0 Iron deficiency anemia secondary to blood loss (chronic) (principal)
CPT/HCPCS: 96365; J1756

== ENCOUNTER 2023-09-16 10:58 | Outpatient (CLI) | payer MEDICARE, SELFPAY ==
--- NOTE | 2023-09-16 11:45 | PC.NURSE ---
1145-after 4 unsuccessful attempts with ultrasound to gain iv access; pt d/c home and will try to come back next week to get infusion.
== END 2023-09-16 11:45 | disposition home or self-care (01) ==
LOC: INF 10:59
PROVIDERS: PCP Nurse Practitioner; Visit Provider Internal Medicine Medical Oncology
DX: D50.0 Iron deficiency anemia secondary to blood loss (chronic) (principal)

== ENCOUNTER 2023-09-23 11:03 | Outpatient (CLI) | payer MEDICARE, SELFPAY ==
[2023-09-23 11:25] VITALS: BP 143/73; PULSE 76; RESP 17; TEMP 36.6; O2SAT 98
[2023-09-23] MEDS: ferumoxytoL 510 MG in 0.9 % SODIUM CHLORIDE 50 ML 268 MG IV (11:25)
[2023-09-23] MEDS: SODIUM CHLORIDE 0.9% 50ML BAG 50 ML IV (11:25)
[2023-09-23 11:45] VITALS: BP 136/72; PULSE 73; RESP 18; O2SAT 98
== END 2023-09-23 11:45 | disposition home or self-care (01) ==
PROVIDERS: PCP Nurse Practitioner; Visit Provider Internal Medicine Medical Oncology
DX: D50.0 Iron deficiency anemia secondary to blood loss (chronic); Z79.01 Long term (current) use of anticoagulants
CPT/HCPCS: 96374; Q0138

== ENCOUNTER 2023-10-07 07:30 | Day surgery (SDC) | payer MEDICARE, SELFPAY ==
[2023-10-06 09:47] VITALS: BMI 34.7
[2023-10-07] VITALS (7 sets, daily range): BP systolic 97–177; BP diastolic 47–91; PULSE 61–84; RESP 16–18; TEMP 36.6–36.8; O2SAT 95–99
[2023-10-07] MEDS: LACTATED RINGERS 1000ML 1,000 ML 25 ML IV (07:46)
--- NOTE | 2023-10-07 07:59 | PC.NURSE ---
PT HAS NOT HELD MD EDSON INFORMED AND TALKING WITH FAMILY FOR NEXT STEPS.
[2023-10-07 08:21] LABS: POC Glucose,Bedside 126 (70-110)
--- NOTE | 2023-10-07 08:27 | P.PCN_ITS ---
Procedure: Date: 10/07/23 Patient Date of :: 1950 Procedure Performed:: Esophagogastroduodenoscopy Total colonoscopy Indications:: Patient is a 73-year-old female who presents for upper endoscopy and colo noscopy. She has a history of coronary artery disease, hyperlipidemia, hypertension, obstructive sleep apnea, previous strokes, on Eliquis. She was undergoing routine blood work as an outpatient by her primary care provider, Cyn Dela Cruz. She was noted to have significant anemia and was sent to the emergency department. She was evaluated in the emergency department and found to have a hemoglobin of 5.5. She was transfused 3 units packed red blood cells as an outpatient. She was referred for surgical consultation for upper endoscopy. Patient denies any symptoms of hematochezia or hematemesis. She has had some dark stools for quite some time. However, it is unclear if this is consistent with melena. She denies any definite history of known ulcers. Patient did have apparently multiple strokes last year and is on high-dose Eliquis. She does state that she had previously had a colonoscopy a couple years ago. Review of the record reveals that Dr. Sloan performed colonoscopy on 06/01/2019 at which time she had 6 tubular adenomas. He recommended repeat colonoscopy in 3 years. Patient has subsequently seen Dr. Tejeda. Subsequent blood work consistent with iron deficiency anemia. When patient arrived for her case-endoscopy she had not discontinued her Eliquis. Patient was advised to reschedule procedures. However, they wished to proceed if at all possible. It was explained to the patient and family that if any pathology is encountered biopsy is unlikely to be safely performed while being on anticoagulation. They wish to proceed with upper endoscopy and colonoscopy with a clear understanding that she is at higher risk for bleeding complications and that if any pathology is encountered it is unlikely to be able to be addressed by biopsy or polypectomy. . Performing Provider:: Slim Aguilar MD Referring Provider:: Cyn Dela Cruz Sedation:: MAC sedation Procedure:: Patient history was obtained and appropriate physical examination was performed. Patient's medications and allergies were reviewed. Informed consent was obtained after explaining the benefits, alternatives, and risks of the procedure including, but not limited to, bleeding, perforation, missed lesions, and adverse reaction to anesthesia medications. Patient was transported to endoscopy procedure room. Patient was connected to monitoring devices. Throughout the procedure the patient's blood pressure, pulse, and oxygen saturations were monitored continuously. Patient identification and planned procedure were verified by the staff. Patient was positioned in lateral decubitus position. Attention was first turned to upper endoscopy. Endoscope was inserted via the oropharynx and the esophagus was cannulated. There was some minor tortuosity to the esophagus consistent with mild esophageal dysmotility. Gastroesophageal junction was encountered at approximately 40 cm. Stomach was cannulated and insufflated. Retroflexion revealed no evidence of any hiatal hernia. There were a few punctate areas of heme material potentially consistent with mild oozing but no definite erosions or ulcerations. Biopsies were not performed as patient remains on anticoagulant. Pylorus was traversed. Duodenum appeared unremarkable. There was some prominent mucosa surrounding the pylorus. Likely some degree of gastropathy/nonerosive gastritis. Biopsies were not performed as patient remained on anticoagulant. Endoscope was withdrawn. Next attention was turned to colonoscopy. Digital anorectal exam was performed. Variable stiffness Olympus colonoscope was inserted and advanced under direct visualization to the cecum. Adequacy of the colonic preparation was noted. The colonoscope was advanced a short distance into the terminal ileum. The colonoscope was then slowly withdrawn while carefully examining the color, texture, anatomy, and integrity of the mucosoa circumferentially. Within the rectum retroflexion was performed. Colonoscope was then withdrawn. Colonic preparation was quite poor. There was particulate liquid stool throughout the colon and despite high-volume trans colonoscopic irrigation and suctioning this was unable to be cleared. Ultimately the cecum however was reached. There was a moderately large irregular polyp within the cecum. This was not removed as the patient remained on anticoagulant. Colonoscope was withdrawn through the colon. Preparation was rather poor. There were some sigmoid diverticuli. Colonoscope was withdrawn. . Findings:: Gastroesophageal junction at approximately 40 cm Probable nonerosive gastropathy/gastritis Several punctate areas of heme material potential source of slow blood loss Prominent peripyloric mucosa . Poor colonic preparation Sigmoid diverticulosis Moderately large polyp in the cecum, polypectomy not performed due to patient on anticoagulant Recommendations:: Recommend repeat colonoscopy with possible endoscopy off anticoagulant with maximum prep Complications:: None immediately apparent Estimated blood obtained (mL): 0 Colonoscopy Component Colonoscopy Component Was a colonoscopy performed during today's procedure?: Yes Recommended follow up colonoscopy of at least 10 years?: No If no, follow up colonoscopy recommended in ___ years?: See above Reason for not recommending >/= 10 yr follow-up interval?: See above
--- NOTE | 2023-10-07 08:30 | EXP.ANES.CKL ---
[facility] Disclaimer: The information contained in this section may have been updated after the patient was seen, as this information can be updated by other users. Medical History History of diabetes mellitus History of stroke History of melanoma CAD (coronary artery disease) Morbid obesity with BMI of 40.0-44.9, adult TEODORO (obstructive sleep apnea) HTN (hypertension) HLD (hyperlipidemia) Abnormal electrocardiography Dyspnea Crescendo angina Surgical History History of coronary artery stent placement Family History Other No significant family history Social History Smoking Status: Never smoker alcohol intake: never substance use type: denies use current occupational status: employed Travel in the last 8 weeks: Inside the [place] household members: other housing: house current occupation: [employer] [place] caffeine: Yes [facility] [place] Anesthesia Checklist Patient Identification Patient Identification: Arm Band and Verbal (Name & ) Structural Data Admitted From: Home Planned Operative Procedure/s: EGD/Colonoscopy Consent for Planned Operative Procedure(s) Verified: Yes NPO Status Verified Time NPO: 00:00 Additional verifications Anesthesia Reactions: No Airway Assessment Mallampati Score:: Class IV C-Spine Mobility Assessed: Yes TMJ Mobility Assessed: Yes Dentition: Poor Dentition Neurological Assessment Level of Consciousness: Awake Hx Seizures: No Numbness or tingling in extremities: No Anesthesia Plan Anesthesia Risk discussed: Yes Anesthesia Plan: Verified ASA Class: III Anesthesia Type: MAC
[2023-10-07] MEDS: 0.9 % SODIUM CHLORIDE 50 ML 268 ML IV (09:37)
[2023-10-07] MEDS: ferumoxytoL 510 MG in 0.9 % SODIUM CHLORIDE 50 ML 268 MG IV (09:37)
--- NOTE | 2023-10-07 09:50 | SUR.PHASEII ---
Iron infusion running at this time. VSS. Pt resting with eyes closed, family at bedside.
== END 2023-10-07 10:19 | disposition home or self-care (01) ==
PROVIDERS: PCP Nurse Practitioner; Visit Provider Surgery
PROC: 0DJ08ZZ Inspection of Upper Intestinal Tract, Via Natural or Artificial Opening Endoscopic (ICD-10-PCS; CPT 43235; principal; 2023-10-07 08:30)
DX: K92.1 Melena (principal); C43.9 Malignant melanoma of skin, unspecified; Z12.11 Encounter for screening for malignant neoplasm of colon; K57.30 Diverticulosis of large intestine without perforation or abscess without bleeding; K31.9 Disease of stomach and duodenum, unspecified; K22.4 Dyskinesia of esophagus; Z79.01 Long term (current) use of anticoagulants; Z51.81 Encounter for therapeutic drug level monitoring; Z91.199 Patient's noncompliance with other medical treatment and regimen due to unspecified reason; D64.9 Anemia, unspecified; Z79.899 Other long term (current) drug therapy
CPT/HCPCS: 43235; 45378; 82962; 96374; Q0138

== ENCOUNTER 2023-10-18 13:49 | Outpatient (CLI) | payer MEDICARE, SELFPAY ==
[2023-10-18 14:09] LABS: Basophils % 0.4 % (0.1-2.0); Eosinophils # 0.1 K/mm3 (0.0-0.4); Eosinophils % 1.8 % (0.1-12.0); Hematocrit 35.3 % (37.0-47.0); Hemoglobin 11.1 g/dL (12.2-16.2); Lymphocytes # 2.2 K/mm3 (0.7-4.5); Lymphocytes % 30.1 % (10-50); Mean Corpuscular HGB Conc 31.4 g/dL (31.8-35.4); Mean Corpuscular Hemoglobin 26.9 pg (27.0-31.2); Mean Corpuscular Volume 85.6 fl (81-99); Mean Platelet Volume 8.7 fl (7.4-10.4); Monocytes # 0.3 K/mm3 (0.1-1.0); Monocytes % 3.9 % (1.7-9.3); Neutrophils # 4.6 K/mm3 (1.8-7.8); Neutrophils % 63.7 % (37.0-80.0); Platelet Count 215 K/mm3 (142-424); Red Blood Count 4.12 M/mm3 (4.20-5.40); Red Cell Distribution Width 24.6 % (11.5-17.5); White Blood Count 7.2 K/mm3 (4.8-10.8)
[2023-10-18 15:31] LABS: Iron 79 ug/dL (37-170)
[2023-10-18 15:41] LABS: Total Iron Binding Capacity 329 ug/dL (265-497)
[2023-10-18 16:07] LABS: Ferritin 139 ng/ml (11.1-264)
== END 2023-10-18 23:59 | disposition home or self-care (01) ==
PROVIDERS: PCP Nurse Practitioner; Visit Provider Internal Medicine Medical Oncology
DX: D50.9 Iron deficiency anemia, unspecified (principal)
CPT/HCPCS: 82728; 83540; 83550; 85025

== ENCOUNTER 2023-12-07 14:57 | Outpatient (CLI) | payer MEDICARE, SELFPAY ==
--- NOTE | 2023-12-07 15:04 | XR_ITS ---
FINAL REPORT CLINICAL HISTORY: POST MENOPAUSAL COMPARISON: None FINDINGS: Using L1-4, the bone mineral density of the spine is 1.093 g/cm2, corresponding to T-score of 0.4 which is within normal limits. Using the left hip, the bone mineral density of the femoral neck is 0.780 g/cm2, corresponding to a T-score of -0.6 which is within normal limits. Using the right hip, the bone mineral density of the femoral neck is 0.841 g/cm2, corresponding to a T-score of -0.1 which is within normal limits. FRAX not reported because all T-scores at or above-1.0. NOTE: T-score: Standard deviation compared with peak bone mass of young adult mean. *Following the recommendations of the International Society of Bone densitometry, classification of hip BMD is based on the lower of two T-scores; total hip or femoral neck. IMPRESSION: Normal bone mineral density of the lumbar spine and hips. Reviewed, Interpreted and Dictated by Slim Eaton III, MD Transcribed by Kylah Keene Authenticated and [facility]
--- NOTE | 2023-12-07 15:04 | MM_ITS ---
PROCEDURE INFORMATION: Exam: MG Bilateral Screening 3D Mammography Exam date and time: 12/07/2023 3:16 PM Age: 73 years old Clinical indication: Screening examination TECHNIQUE: Imaging protocol: Bilateral Screening tomosynthesis and 2D mammography including computer-aided detection (CAD) when performed. Patient had a stroke. Patient unable to hold position COMPARISON: 1. MG MM DIG MAMM BI DX W/CAD 06/18/2022 12:18 PM 2. MG MM DIG SCREENING MAMM BI W/CAD 04/30/2021 4:11 PM FINDINGS: MAMMOGRAPHY: Breast composition: There are scattered areas of fibroglandular density. Mass: None. Architectural distortion: None. Calcifications: No suspicious calcifications. Asymmetric density: None. Skin thickening: None. Axillary adenopathy: Nonvisualization of posterior tissue and axilla bilaterally due to the patient's inability to fully cooperate with the examination. IMPRESSION: No mammographic evidence of malignancy. Annual screening is recommended unless otherwise clinically indicated. ASSESSMENT: BI-RADS Category 1: Negative
== END 2023-12-07 23:59 | disposition home or self-care (01) ==
LOC: RAD 14:58
PROVIDERS: PCP Nurse Practitioner; Visit Provider Nurse Practitioner
DX: Z12.31 Encounter for screening mammogram for malignant neoplasm of breast (principal); Z78.0 Asymptomatic menopausal state
CPT/HCPCS: 77063; 77067; 77080

== ENCOUNTER 2023-12-27 11:38 | Outpatient (CLI) | payer MEDICARE, SELFPAY ==
[2023-12-27 12:10] LABS: Basophils % 0.3 % (0.1-2.0); Eosinophils # 0.1 K/mm3 (0.0-0.4); Eosinophils % 1.1 % (0.1-12.0); Hematocrit 36.2 % (37.0-47.0); Hemoglobin 11.4 g/dL (12.2-16.2); Lymphocytes # 1.6 K/mm3 (0.7-4.5); Lymphocytes % 22.8 % (10-50); Mean Corpuscular HGB Conc 31.5 g/dL (31.8-35.4); Mean Platelet Volume 8.2 fl (7.4-10.4); Monocytes # 0.3 K/mm3 (0.1-1.0); Monocytes % 4.7 % (1.7-9.3); Neutrophils % 71.1 % (37.0-80.0); Platelet Count 199 K/mm3 (142-424); Red Blood Count 3.94 M/mm3 (4.20-5.40); Red Cell Distribution Width 19.1 % (11.5-17.5)
[2023-12-27 12:56] LABS: Iron 67 ug/dL (37-170)
[2023-12-27 13:06] LABS: Total Iron Binding Capacity 313 ug/dL (265-497)
[2023-12-27 13:33] LABS: Ferritin 20.2 ng/ml (11.1-264)
== END 2023-12-27 23:59 | disposition home or self-care (01) ==
LOC: LAB 11:40
PROVIDERS: PCP Nurse Practitioner; Visit Provider Internal Medicine Medical Oncology
DX: D64.9 Anemia, unspecified (principal)
CPT/HCPCS: 36415; 82728; 83540; 83550; 85025

== ENCOUNTER 2024-02-06 11:07 | Outpatient (CLI) | payer MEDICARE, SELFPAY | END 2024-02-06 23:59 | disposition home or self-care (01) | LOC: RT 11:09 | PROVIDERS: PCP Nurse Practitioner; Visit Provider Specialist | DX: G47.33 Obstructive sleep apnea (adult) (pediatric) (principal); I11.9 Hypertensive heart disease without heart failure; I25.118 Atherosclerotic heart disease of native coronary artery with other forms of angina pectoris; Z86.73 Personal history of transient ischemic attack (TIA), and cerebral infarction without residual deficits | CPT/HCPCS: 94762 ==

== ENCOUNTER 2024-02-20 09:21 | Outpatient (CLI) | payer MEDICARE, SELFPAY ==
--- NOTE | 2024-02-20 09:21 | CT_ITS ---
FINAL REPORT TECHNIQUE: Axial imaging of the head was obtained without contrast. This study was performed with techniques to keep radiation doses as low as reasonably achievable, (ALARA). Individualized dose reduction techniques using automated exposure control or adjustment of mA and/or kV according to the patient's size were employed. CLINICAL HISTORY: encephalopathy, memory loss COMPARISON: 11/06/2022 FINDINGS: The ventricles are mildly enlarged. There is mild diffuse atrophy. There is abnormal decreased attenuation in the right basal ganglia, with lower attenuation and better defined than seen on the prior exam of 2022, consistent with the sequela of a prior ischemic event. In addition, there are several small deep white matter right parietal lobe new low-density is present, likely also related to the previous ischemic event. There is no evidence of hemorrhage. No masses are identified. No extra-axial fluid is seen. The sinuses are normal. IMPRESSION: Mild diffuse atrophy. Abnormal decreased attenuation in the right basal ganglia, consistent with the sequela of a prior ischemic event. There are several other small deep white matter right parietal lobe low-density is present, also likely related to the prior ischemic event. No acute mass effect or shift is identified. Reviewed, Interpreted and Dictated by Tre Main MD Transcribed by Hannah Lamb Authenticated and [facility]
== END 2024-02-20 23:59 | disposition home or self-care (01) ==
PROVIDERS: PCP Nurse Practitioner; Visit Provider Specialist
DX: R41.3 Other amnesia (principal); Z86.73 Personal history of transient ischemic attack (TIA), and cerebral infarction without residual deficits
CPT/HCPCS: 70450

== ENCOUNTER 2024-06-04 13:12 | Outpatient (CLI) | payer MEDICARE, SELFPAY ==
--- NOTE | 2024-06-04 13:13 | CT_ITS ---
FINAL REPORT CLINICAL HISTORY: fall x2 weeks, on blood thinners COMPARISON: 01/31/2024 FINDINGS: Axial images of the head were obtained without contrast. Coronal reformatted images were also obtained.This study was performed with techniques to keep radiation doses as low as reasonably achievable (ALARA). Individualized dose reduction techniques using automated exposure control or adjustment of mA and/or kV according to the patient's size were employed. There is mild cortical atrophy and small vessel ischemic change. Chronic right periventricular infarcts are stable. There is no evidence of intracranial hemorrhage or mass. The ventricular size is within normal limits. There is no evidence of shift of the midline structures. No abnormal extra axial fluid collection is identified. No skull abnormality is seen on the bone window images. IMPRESSION: Stable chronic findings. No acute intracranial abnormality. Reviewed, Interpreted and Dictated by Slim Eaton III, MD Transcribed by Keily Melchor Authenticated and [facility]
== END 2024-06-04 23:59 | disposition home or self-care (01) ==
LOC: RAD 13:13
PROVIDERS: PCP Nurse Practitioner; Visit Provider Specialist
DX: R51.9 Headache, unspecified (principal); W19.XXXA Unspecified fall, initial encounter; R41.3 Other amnesia; D50.0 Iron deficiency anemia secondary to blood loss (chronic); I63.9 Cerebral infarction, unspecified; I25.10 Atherosclerotic heart disease of native coronary artery without angina pectoris
CPT/HCPCS: 70450